=== PATIENT | male | born 1995 | race Hispanic/Latino ===

== ENCOUNTER 2022-08-19 17:59 | Emergency (ER) | payer SELFPAY ==
[2022-08-19 18:01] VITALS: BP 142/90; PULSE 87; RESP 16; TEMP 36.7; O2SAT 99
[2022-08-19 18:13] VITALS: BMI 34.0
--- NOTE | 2022-08-19 18:21 | EX.ED.DYSGE1 ---
HPI <NAGA Rock - Last Filed: 08/19/22 20:20> History of Present Illness Chief Complaint: Complaint Narrative Narrative: 27-year-old male presents with 3 days of increased thirst and increased urination. States he is peeing almost every hour. No burning or hematuria. No abdominal or back pain. No fever chills nausea or vomiting. He he denies history of similar symptoms. He has not seen a doctor and takes no medications. Denies weight changes. Family history of diabetes in his mom. PFSH <NAGA Rock - Last Filed: 08/19/22 20:20> PFSH Medical History no medical history Home Medications metformin 500 mg tablet 500 mg PO BID 30 days #60 tabs 08/19/22 [Rx Last Taken Unknown] Allergy/AdvReac Type Severity Reaction Status Date / Time No Known Allergies Allergy Verified 08/19/22 18:16 Surgical History no surgical history Social History Smoking Status: Current every day smoker tobacco type: cigarettes ROS <NAGA Rock Last Filed: 08/19/22 20:20> ROS ED ROS Narrative Constitutional: Negative for fever, chills, malaise. CVS: Negative for chest pain. Respiratory: Negative for shortness of breath. GI: Negative for abdominal pain, nausea, vomiting. : Positive for frequency. Negative for dysuria, hematuria. EXAM <NAGA Rock - Last Filed: 08/19/22 20:20> Physical Exam Narrative Exam Narrative: CONST: Patient sitting in no acute distress. EYES: Normal inspection. NECK: Normal inspection. RESP: No respiratory distress, CTAB. CVS: Regular rate and rhythm, no murmur, no gallop. ABD: Soft and nontender, no guarding or rebound, nondistended. SKIN: Color normal, no rash, warm, dry, intact. EXTREMITIES: Normal appearance, no pedal edema. NEURO: Oriented x4. PSYCH: Normal affect. Const Vital Signs: 08/19/22 18:01 08/19/22 20:16 Temperature 98.0 F Temperature Source Temporal Pulse Rate 87 80 Respiratory Rate 16 15 Blood Pressure 142/90 H 141/83 H Blood Pressure Mean 107 Pulse Ox 99 99 Oxygen Delivery Method Room Air <Dr. 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 He appears well and nontoxic and is afebrile with normal vital signs. Benign exam. Fingerstick glucose is over 500 so I ordered IV fluids and blood work will be obtained to work-up new diagnosis of diabetes and rule out DKA. CBC is within normal limits. BMP shows glucose 560, Na 132 (corrected 139), CO2 21, anion gap 13. Urine shows glucosuria and ketones but no infection. He given 2 L IV fluids and 10 units of subcutaneous insulin and glucose is trending down to 393 one hour later. Since he is not in DKA I do not think he requires admission. I prescribed metformin 500 mg twice daily and instructed him to see a family doctor IRAIS week. Return to ER for worsening symptoms. He was agreeable with this plan and all questions answered. Differential: Diabetes, DKA, UTI Lab Data Attestation: I reviewed the patient's lab results. Labs: Laboratory Results - last 24 hr 08/19/22 08/19/22 08/19/22 18:21 18:30 18:33 WBC 8.1 RBC 5.40 Hgb 16.1 Hct 46.4 MCV 85.9 MCH 29.8 MCHC 34.7 RDW Std Deviation 39.3 RDW Coeff of Angela 12.7 Plt Count 255 MPV 11.8 Immature Gran % (Auto) 0.500 Neut % (Auto) 65.0 Lymph % (Auto) 24.2 [place] % (Auto) 8.0 Eos % (Auto) 1.7 Baso % (Auto) 0.6 Absolute Neuts (auto) 5.3 Absolute Lymphs (auto) 1.97 Nucleated RBC % 0 Sodium Potassium Chloride Carbon Dioxide Anion Gap BUN Creatinine Estim Creat Clear Calc Est GFR (MDRD) Af Amer Est GFR (MDRD) Non-Af BUN/Creatinine Ratio Glucose Calcium Urine Color Straw Urine Clarity Clear Urine pH 5.0 Ur Specific [place] 1.010 Urine Protein 15 H Urine Glucose (UA) 1000 H Urine Ketones 50 H Urine Occult Blood Negative Urine Nitrite Negative Urine Bilirubin Negative Urine Urobilinogen Normal Ur Leukocyte Esterase Negative Urine RBC 0 SEEN Urine WBC 0 SEEN Ur Squamous Epith Cells 0 SEEN Urine Bacteria 0 SEEN Urine Mucus 0 SEEN Acetone Level POC Glucose > 500 H* 08/19/22 08/19/22 18:33 18:33 WBC RBC Hgb Hct MCV MCH MCHC RDW Std Deviation RDW Coeff of Angela Plt Count MPV Immature Gran % (Auto) Neut % (Auto) Lymph % (Auto) [place] % (Auto) Eos % (Auto) Baso % (Auto) Absolute Neuts (auto) Absolute Lymphs (auto) Nucleated RBC % Sodium 132 L Potassium 4.3 Chloride 98 Carbon Dioxide 21.0 Anion Gap 13 BUN 19 H Creatinine 1.11 Estim Creat Clear Calc 85.42 Est GFR (MDRD) Af Amer 101 Est GFR (MDRD) Non-Af 83 BUN/Creatinine Ratio 17.1 Glucose 560 H* Calcium 9.1 Urine Color Urine Clarity Urine pH Ur Specific [place] Urine Protein Urine Glucose (UA) Urine Ketones Urine Occult Blood Urine Nitrite Urine Bilirubin Urine Urobilinogen Ur Leukocyte Esterase Urine RBC Urine WBC Ur Squamous Epith Cells Urine Bacteria Urine Mucus Acetone Level SMALL H POC Glucose <Dr. Jabari Pyle, DO - Last Filed: 08/19/22 19:18> [facility] Lab Data Labs: Laboratory Results - last 24 hr 08/19/22 08/19/22 08/19/22 18:21 18:30 18:33 WBC 8.1 RBC 5.40 Hgb 16.1 Hct 46.4 MCV 85.9 MCH 29.8 MCHC 34.7 RDW Std Deviation 39.3 RDW Coeff of Angela 12.7 Plt Count 255 MPV 11.8 Immature Gran % (Auto) 0.500 Neut % (Auto) 65.0 Lymph % (Auto) 24.2 [place] % (Auto) 8.0 Eos % (Auto) 1.7 Baso % (Auto) 0.6 Absolute Neuts (auto) 5.3 Absolute Lymphs (auto) 1.97 Nucleated RBC % 0 Sodium Potassium Chloride Carbon Dioxide Anion Gap BUN Creatinine Estim Creat Clear Calc Est GFR (MDRD) Af Amer Est GFR (MDRD) Non-Af BUN/Creatinine Ratio Glucose Calcium Urine Color Straw Urine Clarity Clear Urine pH 5.0 Ur Specific [place] 1.010 Urine Protein 15 H Urine Glucose (UA) 1000 H Urine Ketones 50 H Urine Occult Blood Negative Urine Nitrite Negative Urine Bilirubin Negative Urine Urobilinogen Normal Ur Leukocyte Esterase Negative Urine RBC 0 SEEN Urine WBC 0 SEEN Ur Squamous Epith Cells 0 SEEN Urine Bacteria 0 SEEN Urine Mucus 0 SEEN Acetone Level POC Glucose > 500 H* 08/19/22 08/19/22 18:33 18:33 WBC RBC Hgb Hct MCV MCH MCHC RDW Std Deviation RDW Coeff of Angela Plt Count MPV Immature Gran % (Auto) Neut % (Auto) Lymph % (Auto) [place] % (Auto) Eos % (Auto) Baso % (Auto) Absolute Neuts (auto) Absolute Lymphs (auto) Nucleated RBC % Sodium 132 L Potassium 4.3 Chloride 98 Carbon Dioxide 21.0 Anion Gap 13 BUN 19 H Creatinine 1.11 Estim Creat Clear Calc 85.42 Est GFR (MDRD) Af Amer 101 Est GFR (MDRD) Non-Af 83 BUN/Creatinine Ratio 17.1 Glucose 560 H* Calcium 9.1 Urine Color Urine Clarity Urine pH Ur Specific [place] Urine Protein Urine Glucose (UA) Urine Ketones Urine Occult Blood Urine Nitrite Urine Bilirubin Urine Urobilinogen Ur Leukocyte Esterase Urine RBC Urine WBC Ur Squamous Epith Cells Urine Bacteria Urine Mucus Acetone Level SMALL H POC Glucose Treatment and Re-Evaluation :: I have personally performed a face to face assessment of the patient and have reviewed the SAHRA Note. I performed a substantive portion of the visit including all aspects of the following. My winters findings include: History: Patient presents with urinary frequency that has been getting worse over the past couple days. Patient states he is urinating at least 10 times per day. Patient denies any dysuria. Patient denies any hematuria. Patient also admits to some polydipsia. Patient denies any fevers or chills. Patient denies any nausea or vomiting. Exam: Vital signs are stable. Patient is afebrile. Patient is in no acute distress. Oral mucosa is pink and moist. Neck is supple. Trachea is midline. There is no JVD. Heart was regular rate and rhythm. Lungs are clear and equal bilaterally. Abdomen is soft. Bowel sounds are normal. There is no tenderness. Cranial nerves II through XII are intact. There are no focal motor or sensory deficits. Medical Decision Making: Differential diagnosis includes urinary tract infection, diabetes, and diabetic ketoacidosis. CBC will be obtained to assess for anemia and leukocytosis. Basic metabolic profile will be obtained to assess for electrolyte abnormality, renal function, and glucose. Serum acetone will be obtained to assess for diabetic ketoacidosis. Urinalysis will be obtained to assess for glucosuria and urinary tract infection. CBC was reviewed and was within normal limits. Basic metabolic profile was reviewed. Glucose was elevated at 560. Sodium was slightly low at 132. BUN was 19. Anion gap was normal. CO2 was normal. Urinalysis was reviewed. There is glucosuria of 1000. There is no evidence of urinary tract infection or hematuria. Serum acetone level was reviewed and was small. Patient was advised of his findings. Patient was given a dose of insulin here. Patient was given a prescription for metformin. Patient was instructed to follow-up with a primary care physician in 5 to 7 days for further evaluation. Patient understood and was agreeable with the plan. All questions were answered. Discharge Plan Triage Chief Complaint: Complaint ED Midlevel Provider: Christin Carrillo ED Provider: Jabari Pyle Dx/Rx/DC Orders Clinical Impression: Diabetes mellitus, new onset Instructions: ED Diabetes- Overview Prescriptions: New metformin 500 mg tablet 500 mg PO BID 30 Days Qty: 60 0RF Primary Care Provider: Care Physician,Danyelle Primary Referrals: Ella Kerr MD [Med Staff - Active Staff] - Mary Dhaliwal [Non-Staff] - NOT,DEFINED [Non-Staff] - Activity Restrictions/Additional Instructions: CALL FOR A DOCTOR APPOINTMENT NEXT WEEK. MAKE SURE YOU TELL THEM THE ER TOLD YOU THAT YOU HAVE DIABETES AND NEED SEEN SOON. Disposition Disposition: Home, Self Care
[2022-08-19] MEDS: 0.9% Normal Saline 1,000 ML 999 ML IV ×2 (18:32→19:22)
[2022-08-19 18:35] LABS: Bacteria 0 SEEN /hpf (None Seen); Mucous, Urine 0 SEEN /hpf (<or=2+); Red Blood Cells-Urine 0 SEEN /hpf (0-5); Squamous Epithelial Cells - UA 0 SEEN /hpf (0-5); White Blood Cells 0 SEEN /hpf (0-5)
[2022-08-19 18:39] LABS: Absolute Lymphocyte Count 1.97 X10^3/uL (0.83-4.51); Absolute Neutrophil Count 5.3 X10^3/uL (2.0-7.7); Basophil# 0.05 X10^3/uL; Basophil% 0.6 % (0-1); Eosinophil# 0.14 X10^3/uL; Eosinophils% 1.7 % (0-5); Hematocrit 46.4 % (40-54); Hemoglobin 16.1 g/dL (13.0-16.5); Lymphocyte # 1.97 X10^3/ul (0.83-4.51); Lymphocyte % 24.2 % (19-41); Mean Corp Hgb Conc 34.7 g/dL (32-36); Mean Corpuscular Hgb 29.8 pg (27.0-32.0); Mean Corpuscular Volume 85.9 fL (80-94); Mean Platelet Vol. 11.8 fl (6.2-12.0); Monocyte# 0.65 X10^3/uL; NRBC Flagged by Analyzer 0 % (0-5); Neutrophil # 5.28 X10^3/uL (2.7-7.7); Platelet Count 255 K/mm3 (150-450); RBC Distribution Width CV 12.7 % (11.6-14.6); RBC Distribution Width SD 39.3 fl (35.1-43.9); White Blood Count 8.1 K/mm3 (4.4-11.0)
[2022-08-19 18:40] LABS: Color, Urine Straw (Yellow); Glucose, Dipstick 1000 mg/dl (Normal); Ketone-Dipstick 50 mg/dl (Negative); Leukocyte Esterase-Dipstick Negative /ul (Negative); Nitrite-Dipstick Negative (Negative); Occult Blood-Urine Negative /ul (Negative); Protein-Dipstick 15 mg/dl (Negative); Urine Bilirubin Dipstick Negative (Negative); Urine Clarity Clear (Clear); Urine Urobilinogen Normal (Normal)
[2022-08-19 18:40] LABS: Bedside Glucose > 500 mg/dL (74-106)
[2022-08-19 19:03] LABS: Anion Gap 13 (5-15); BUN 19 mg/dL (7-18); BUN/Creat Ratio 17.1 RATIO (10-20); Calcium,Total 9.1 mg/dL (8.5-10.1); Chloride 98 mmol/L (98-107); Creatinine, Serum 1.11 mg/dL (0.70-1.30); EST Glomerular Filtration Rate 83 mL/min (>60); Est Glom Filt Rate - Afr Amer 101 mL/min (>60); Estimated Creatinine Clearance 85.42 ml/min; Glucose 560 mg/dL (74-106); Potassium 4.3 mmol/L (3.5-5.1); Sodium Level 132 mmol/L (136-145)
[2022-08-19] MEDS: Insulin Lispro 100 UNIT/ML INSULN.PEN 10 UNIT SC (19:21)
[2022-08-19 20:16] VITALS: BP 141/83; PULSE 80; RESP 15; O2SAT 99
[2022-08-19 20:37] LABS: Bedside Glucose 393 mg/dL (74-106)
== END 2022-08-19 20:52 | disposition home or self-care (01) ==
PROVIDERS: Physician Assistant; Emergency Provider Emergency Medicine; Visit Provider Emergency Medicine
DX: E11.9 Type 2 diabetes mellitus without complications (principal); F17.210 Nicotine dependence, cigarettes, uncomplicated; R35.89 Other polyuria; R35.0 Frequency of micturition; Z79.84 Long term (current) use of oral hypoglycemic drugs
CPT/HCPCS: 80048; 81001; 82009; 82962; 85025; 96360; 96361; 99283; J7030

== ENCOUNTER 2022-10-06 18:00 | Inpatient (IN) | payer SELFPAY ==
[2022-10-06] VITALS (8 sets, daily range): BP systolic 122–158; BP diastolic 71–104; PULSE 80–102; RESP 16–26; TEMP 36.3–36.6; O2SAT 99–100; BMI 29.4; BMI 28.7
--- NOTE | 2022-10-06 18:09 | ED.RN ---
NUMB LIPS, EPIGASTRIC PAIN, WEAKNESS FATIGUE. EKG ORDERED IN TRAIGE.
--- NOTE | 2022-10-06 18:25 | NURSING ---
NO OLD EKGS
--- NOTE | 2022-10-06 18:34 | EX.ED.DYSGE1 ---
HPI History of Present Illness Chief Complaint: General Illness Narrative Narrative: 27-year-old male presenting with epigastric pain, nausea, vomiting. He states it is burning. It started yesterday. He states he had eggs and Indonesian fries yesterday before the pain started. It started about 4 PM. Patient states he noticed that he started to have acid reflux symptoms. He has not had this in the past. Patient recently diagnosed with diabetes but has not been taking any medication for this because he does not have a primary care doctor. He is [place]-speaking. 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 He has been out of his metformin now for a while. He was diagnosed in July with new onset diabetes. He states that he does feel short of breath. PFSH PFSH Medical History no medical history Home Medications metformin 500 mg tablet 500 mg PO BID 30 days #60 tabs 08/19/22 [Rx Last Taken Unknown] Allergy/AdvReac Type Severity Reaction Status Date / Time No Known Allergies Allergy Verified 08/19/22 18:16 Surgical History no surgical history Social History Smoking Status: Current every day smoker tobacco type: cigarettes EXAM Physical Exam Const Vital Signs: 10/06/22 18:01 10/06/22 18:51 10/06/22 19:29 Temperature 97.8 F Temperature Source Temporal Pulse Rate 102 H 84 Respiratory Rate 16 20 H Respiratory Effort Normal Non-Labored Respiratory Pattern Normal Blood Pressure 158/104 H 141/84 H Blood Pressure Mean 122 103 Pulse Ox 100 100 Oxygen Delivery Method Room Air Room Air 10/06/22 20:42 10/06/22 21:36 10/06/22 21:55 Temperature Temperature Source Pulse Rate 80 90 Respiratory Rate 18 16 Respiratory Effort Respiratory Pattern Blood Pressure 122/72 H Blood Pressure Mean 88 Pulse Ox 99 100 Oxygen Delivery Method Room Air Room Air Positive well nourished General Appearance ED: NAD; Negative for pallor HEENT Reports moist mucous membranes Eyes PERRL and EOMs intact bilaterally General Eye ED: Negative for pale conjunctiva or scleral icterus Resp normal respiratory effort and clear to auscultation bilaterally Cardio regular rate and regular rhythm GI Palpation: tender epigastric Neuro oriented x3 Sensorium / Orientation: alert Motor Exam: strength 5/5 throughout Psych mental status grossly normal Skin no rashes or lesions noted General Skin Exam: Negative for jaundice or pallor MDM MDM MDM Narrative Medical decision making narrative: Patient presenting with epigastric pain/chest pain been ongoing for a day. He has a history of diabetes which is not well controlled because he does not take his medicine. Differential includes hyperglycemia, DKA, HHNK, ACS, pneumonia, pancreatitis, colitis, gastritis, cholelithiasis. CBC was obtained to assess white blood cell count, hemoglobin. This was within normal limits. CMP to assess liver function, renal function, electrolytes. This shows a elevated alkaline phosphatase and ALT otherwise his LFTs are fairly normal. Blood sugar is 325 with anion gap of 19. He does have large acetone in his blood as well. Patient has an NED as well with a creatinine 1.41. Patient treated with 2 L of normal saline. He was initially given a GI cocktail and Zofran. He continued to have pain so he was given morphine as well. Patient CO2 was 7. High-sensitivity troponin came back at 5. Lipase 536 and slightly elevated. I did obtain a right upper quadrant ultrasound which showed gallbladder sludge without acute cholelithiasis. Chest x-ray my interpretation shows no acute cardiopulmonary process. Radiologist interprets this and agrees. Went back to evaluate the patient initially stated he had 3 beers a day. After speaking with the hospitalist it sounds like he binge drinks all weekend. This may be why his lipase is high. After discussing this with the hospitalist recommends an insulin drip and D5 normal saline. Patient will be admitted to the ICU. Urinalysis returned with ketones but no evidence of infection. All questions were answered. Patient admitted in stable condition. Impression: 1. Chest pain 2. Epigastric pain 3. Elevated lipase 4. DKA 5. Alcohol abuse 6. Noncompliant Lab Data Labs: Laboratory Results - last 24 hr 10/06/22 10/06/22 10/06/22 18:05 18:47 19:20 WBC 9.5 RBC 5.65 Hgb 16.4 Hct 49.5 MCV 87.6 MCH 29.0 MCHC 33.1 RDW Std Deviation 43.0 RDW Coeff of Angela 13.4 Plt Count 233 MPV 11.2 Immature Gran % (Auto) 0.400 Neut % (Auto) 80.3 H Lymph % (Auto) 12.4 L [place] % (Auto) 6.1 Eos % (Auto) 0.4 Baso % (Auto) 0.4 Absolute Neuts (auto) 7.6 Absolute Lymphs (auto) 1.18 Nucleated RBC % 0 Sodium 136 Potassium 3.8 Chloride 110 H Carbon Dioxide 7.0 L* Anion Gap 19 H BUN 12 Creatinine 1.41 H Estim Creat Clear Calc 67.24 Est GFR (MDRD) Af Amer 76 Est GFR (MDRD) Non-Af 63 BUN/Creatinine Ratio 8.5 L Glucose 325 H Calcium 8.4 L Total Bilirubin 0.50 AST 30 ALT 95 H Alkaline Phosphatase 143 H Troponin I High Sens 5 Total Protein 8.2 Albumin 3.8 Globulin 4.4 H Albumin/Globulin Ratio 0.9 Lipase 536 H Urine Color Yellow Urine Clarity Clear Urine pH 5.0 Ur Specific [place] 1.030 Urine Protein 100 H Urine Glucose (UA) 1000 H Urine Ketones 150 A* Urine Occult Blood 25 H Urine Nitrite Negative Urine Bilirubin Negative Urine Urobilinogen Normal Ur Leukocyte Esterase Negative Urine RBC 0 SEEN Urine WBC 0 SEEN Ur Squamous Epith Cells 0 SEEN Urine Bacteria 0 SEEN Hyaline Casts 0-5 SEEN Urine Mucus 0 SEEN Acetone Level POC Glucose 326 H 10/06/22 20:10 WBC RBC Hgb Hct MCV MCH MCHC RDW Std Deviation RDW Coeff of Angela Plt Count MPV Immature Gran % (Auto) Neut % (Auto) Lymph % (Auto) [place] % (Auto) Eos % (Auto) Baso % (Auto) Absolute Neuts (auto) Absolute Lymphs (auto) Nucleated RBC % Sodium Potassium Chloride Carbon Dioxide Anion Gap BUN Creatinine Estim Creat Clear Calc Est GFR (MDRD) Af Amer Est GFR (MDRD) Non-Af BUN/Creatinine Ratio Glucose Calcium Total Bilirubin AST ALT Alkaline Phosphatase Troponin I High Sens Total Protein Albumin Globulin Albumin/Globulin Ratio Lipase Urine Color Urine Clarity Urine pH Ur Specific [place] Urine Protein Urine Glucose (UA) Urine Ketones Urine Occult Blood Urine Nitrite Urine Bilirubin Urine Urobilinogen Ur Leukocyte Esterase Urine RBC Urine WBC Ur Squamous Epith Cells Urine Bacteria Hyaline Casts Urine Mucus Acetone Level LARGE H POC Glucose Radiography Diagnostic Testing: Clinical Impression(s) from Imaging Studies Chest X-Ray 10/06/22 19:05 IMPRESSION: No radiographic evidence of acute cardiopulmonary disease. Electronically Signed: Etsrellita Cheung MD at 20:07 EDT [place] Location ID and State: [id number] / Tel , Service support , Gallbladder Ultrasound 10/06/22 20:27 IMPRESSION: 1. Gallbladder sludge. 2. Suspected gallbladder polyp. 3. Hypoechoic lesion adjacent to the gallbladder, probable fatty sparing. 4. Mild hepatic steatosis. Electronically Signed: Estrellita Cheung MD at 22:03 EDT [place] Location ID and State: [id number] / Tel , Service support , Discharge Plan Triage Chief Complaint: General Illness ED Provider: Daniel Herrera Dx/Rx/DC Orders Prescriptions: No Action metformin 500 mg tablet 500 mg PO BID 30 Days Qty: 60 0RF Primary Care Provider: Care Physician,No Primary Referrals: Care Physician,No Primary [Primary Care Provider] -
[2022-10-06 18:58] LABS: Absolute Lymphocyte Count 1.18 X10^3/uL (0.83-4.51); Absolute Neutrophil Count 7.6 X10^3/uL (2.0-7.7); Basophil# 0.04 X10^3/uL; Basophil% 0.4 % (0-1); Eosinophil# 0.04 X10^3/uL; Eosinophils% 0.4 % (0-5); Hematocrit 49.5 % (40-54); Hemoglobin 16.4 g/dL (13.0-16.5); Lymphocyte # 1.18 X10^3/ul (0.83-4.51); Lymphocyte % 12.4 % (19-41); Mean Corp Hgb Conc 33.1 g/dL (32-36); Mean Corpuscular Volume 87.6 fL (80-94); Mean Platelet Vol. 11.2 fl (6.2-12.0); Monocyte# 0.58 X10^3/uL; Monocyte% 6.1 % (0-10); NRBC Flagged by Analyzer 0 % (0-5); Neutrophil # 7.62 X10^3/uL (2.7-7.7); Neutrophil % 80.3 % (47-70); Platelet Count 233 K/mm3 (150-450); RBC Distribution Width CV 13.4 % (11.6-14.6); Red Blood Count 5.65 M/mm3 (4.6-6.2); White Blood Count 9.5 K/mm3 (4.4-11.0)
[2022-10-06 19:01] LABS: Bedside Glucose 326 mg/dL (74-106)
[2022-10-06] MEDS: 0.9% Normal Saline 1,000 ML 1000 ML IV ×2 (19:05→20:41)
[2022-10-06] MEDS: Mag Hydrox/Al Hydrox/Simeth 30 ML UDC PO (19:05)
--- NOTE | 2022-10-06 19:05 | RAD_ITS ---
INDICATION: chest pain EXAMINATION/TECHNIQUE: X-RAY - XR Chest 1 View COMPARISON: FINDINGS: LINES/DEVICES: None. LUNGS: No consolidation, edema or effusion. No pneumothorax. MEDIASTINUM AND CARDIOVASCULAR STRUCTURES: Cardiac silhouette not enlarged. Central airways and mediastinal contour are unremarkable. BONES AND SOFT TISSUES: Unremarkable. RAD/Chest 1 View (Portable) IMPRESSION: No radiographic evidence of acute cardiopulmonary disease. Electronically Signed: Estrellita Cheung MD at 20:07 EDT Reading Location ID and State: [id number] / Tel , Service support ,
[2022-10-06] MEDS: Ondansetron 4 MG/2 ML Vial IV (19:14)
[2022-10-06 19:27] LABS: Bacteria 0 SEEN /hpf (None Seen); Mucous, Urine 0 SEEN /hpf (<or=2+); Red Blood Cells-Urine 0 SEEN /hpf (0-5); Squamous Epithelial Cells - UA 0 SEEN /hpf (0-5); White Blood Cells 0 SEEN /hpf (0-5)
[2022-10-06 19:31] LABS: Color, Urine Yellow (Yellow); Glucose, Dipstick 1000 mg/dl (Normal); Leukocyte Esterase-Dipstick Negative /ul (Negative); Nitrite-Dipstick Negative (Negative); Occult Blood-Urine 25 /ul (Negative); Protein-Dipstick 100 mg/dl (Negative); Urine Bilirubin Dipstick Negative (Negative); Urine Clarity Clear (Clear); Urine Urobilinogen Normal (Normal)
[2022-10-06 19:35] LABS: ALB/GLOB Ratio 0.9 RATIO (0.9-2.4); AST(SGOT) 30 U/L (15-37); Alanine Aminotransfer ALT/SGPT 95 U/L (16-61); Albumin, Serum 3.8 g/dL (3.2-5.0); Alkaline Phosphatase 143 U/L (45-117); Anion Gap 19 (5-15); BUN 12 mg/dL (7-18); BUN/Creat Ratio 8.5 RATIO (10-20); Calcium,Total 8.4 mg/dL (8.5-10.1); Chloride 110 mmol/L (98-107); Creatinine, Serum 1.41 mg/dL (0.70-1.30); EST Glomerular Filtration Rate 63 mL/min (>60); Est Glom Filt Rate - Afr Amer 76 mL/min (>60); Estimated Creatinine Clearance 67.24 ml/min; Globulin 4.4 g/dL (2.2-4.2); Glucose 325 mg/dL (74-106); Lipase 536 U/L (13-75); Potassium 3.8 mmol/L (3.5-5.1); Protein, Total 8.2 g/dL (6.4-8.2); Sodium Level 136 mmol/L (136-145); Troponin-I HS 5 pg/mL (3.0-78.0)
[2022-10-06 19:41] LABS: Ketone-Dipstick 150 mg/dl (Negative)
[2022-10-06 19:46] LABS: Hyaline Cast 0-5 SEEN /lpf (0-5)
--- NOTE | 2022-10-06 20:27 | US_ITS ---
EXAM: US ABDOMEN LIMITED, RIGHT UPPER QUADRANT CLINICAL INDICATION: ruq pain TECHNIQUE: Real-time ultrasound of the right upper quadrant with image documentation. COMPARISON: No relevant prior studies available. FINDINGS: LIVER: 2.3 x 1.7 cm hypoechoic lesion in the liver adjacent to the gallbladder, nonspecific. This may represent focal fatty sparing. Liver is normal in size measuring 17.3 cm. Mild increased echogenicity consistent with fatty infiltration. GALLBLADDER: Sludge in the gallbladder. 0.5 x 0.4 cm polyp on the nondependent wall. No pericholecystic fluid. Mold Holder does not comment on the presence or absence of sonographic Foley sign. COMMON BILE DUCT: Unremarkable as visualized. The proximal common bile duct is within normal limits for the patient''s age. PANCREAS: Limited visualization of the pancreas. Demonstrated portion of the pancreatic body is unremarkable. RIGHT KIDNEY: Right kidney is normal in size and echogenicity measuring 12 x 5.9 cm. Renal cortical thickness is normal. No mass, stone, or hydronephrosis. US/Gallbladder IMPRESSION: 1. Gallbladder sludge. 2. Suspected gallbladder polyp. 3. Hypoechoic lesion adjacent to the gallbladder, probable fatty sparing. 4. Mild hepatic steatosis. Electronically Signed: Estrellita Cheung MD at 22:03 EDT [place] Location ID and State: [id number] / Tel , Service support ,
[2022-10-06] MEDS: Morphine 4 MG/ML Syringe IV (20:41)
--- NOTE | 2022-10-06 22:20 | HP.PCM.HOS_ITS ---
HPI - General General Date of Admission: 10/06/22 Date of Service: 10/06/22 Chief Complaint: N/V/Abd pain. HPI Narrative The patient is a 27 y/o Kazakh-speaking M w/ PMHx: Overweight, GERD, Diabetes mellitus type II on metformin outpatient, EtOH abuse x ~ 16 years (Binge with at least 15 beers/day over the -Sun timeline) who presents to the [facility] ED on 10/06/22 with history of onset at approximately 4 PM on day of presentation severe epigastric discomfort rated 6-7 out of 10 in severity with associated nausea and emesis describing the discomfort as a burning aching sensation with a history of underlying reflux type symptoms but has never had this presentation previously does report that unfortunately he has not been taking any of his diabetic medications as he has not had it refilled because he has not established with a primary care physician but given ongoing discomfort, malaise, fatigue and now onset of mild dyspnea prompted ED evaluation. He does reports polydipsia and polyuria history. Work-up in the ED included T97.8, heart rate 102, BP 158/104, respiratory rate 16, 100% oxygenation on room air, CBC with WBC 9.5, hemoglobin 16.4, platelet 223 without marked shift, CMP with chloride 110, carbon oxide 7, anion gap 19, BUN/creatinine 12/1.41, glucose 325, calcium 8.4, ALT 95, alk phos 143, lipase 536, urinalysis with elevated specific gravity 1.030, protein 100, glucose 1000, ketones 150, occult blood 25 otherwise no obvious evidence of UTI, acetone large, chest x-ray with no acute cardiopulmonary findings, gallbladder ultrasound with evidence of gallbladder sludge and suspected gallbladder polyp with hypoechoic lesion adjacent to the gallbladder probably fatty sparring with mild hepatic steatosis. In the ED patient administered Protonix 40 mg IV x1, Zofran 4 mg IV x1, morphine 4 mg IV x1, Mylanta 30 mils p.o. x1 in addition to viscous oral lidocaine and initiated on an insulin drip with 2 L IV fluid administration. [facility] Medical History (Updated 10/07/22 @ 01:[address] Danielle De Luna MD) Alcohol abuse Diabetes mellitus, type 2 GERD (gastroesophageal reflux disease) Overweight Medical History no medical history Home Medications metformin 500 mg tablet 500 mg PO BID 30 days #60 tabs 08/19/22 [Rx Last Taken Unknown] Allergy/AdvReac Type Severity Reaction Status Date / Time No Known Allergies Allergy Verified 08/19/22 18:16 Family History (Updated 10/07/22 @ 01:[address] Danielle De Luna MD) Mother Diabetes Father No problems noted. other (Patient denies any marked paternal family history including heart disease, diabetes, cancer.) Surgical History (Updated 10/07/22 @ 01:[address] Danielle De Luna MD) No history of previous surgery Surgical History no surgical history Social History (Updated 10/07/22 @ 01:[address] Danielle De Luna MD) household members: spouse and family Smoking Status: Never smoker alcohol intake: current alcohol intake frequency: 3 or more drinks per day details: Patient with binge drinking ~ 15 beers/daily F-Sun. substance use type: does not use ROS ROS Narrative Admission Review of Systems: CONSTITUTIONAL: No weight loss, fever, chills, + weakness or fatigue. HEENT: Eyes: No visual loss, blurred vision, double vision or yellow sclerae. Ears, Nose, Throat: No hearing loss, sneezing, congestion, runny nose or sore throat. SKIN: No rash or itching, lesions, wounds. CARDIOVASCULAR: No chest pain, chest pressure or chest discomfort, palpitations, edema, orthopnea, syncopal events. RESPIRATORY: + shortness of breath, No cough or sputum, wheezing, hemoptysis. GASTROINTESTINAL: + anorexia, nausea, vomiting, abdominal pain. No diarrhea, melena, BRBPR. GENITOURINARY: No dysuria, frequency, urgency or retention. NEUROLOGICAL: No headache, dizziness, syncope, paralysis, ataxia, numbness or tingling in the extremities, focal weakness, change in bowel or bladder control, seizure. MUSCULOSKELETAL: + muscle, back pain, joint pain or stiffness. HEMATOLOGIC: No anemia, bleeding or bruising. LYMPHATICS: No enlarged nodes. No history of splenectomy. PSYCHIATRIC: No history of depression or anxiety. ENDOCRINOLOGIC: No reports of sweating, cold or heat intolerance. + polyuria or polydipsia. ALLERGIES: No history of asthma, hives, eczema or rhinitis. Vital Signs Vital Signs Vital Signs: 10/06/22 18:01 10/06/22 18:51 10/06/22 19:29 Temperature 97.8 F Temperature Source Temporal Pulse Rate 102 H 84 Respiratory Rate 16 20 H Respiratory Effort Normal Non-Labored Respiratory Pattern Normal Blood Pressure 158/104 H 141/84 H Blood Pressure Mean 122 103 Pulse Ox 100 100 Oxygen Delivery Method Room Air Room Air 10/06/22 20:42 10/06/22 21:36 10/06/22 21:55 Temperature Temperature Source Pulse Rate 80 90 Respiratory Rate 18 16 Respiratory Effort Respiratory Pattern Blood Pressure 122/72 H Blood Pressure Mean 88 Pulse Ox 99 100 Oxygen Delivery Method Room Air Room Air Weight Weight: 177 lb Body Mass Index (BMI) 29.4 Physical Exam Narrative Physical Examination: General: Awake, alert, oriented x 3 and cooperative, laying in the ED bed, fati gued and ill-appearing, notes ongoing epigastric discomfort. Skin: Normal color, normal turgor, no icterus, no cyanosis. HEENT: AT/NC, EOMI, PERRLA, dry MM, no carotid bruits or JVD noted. Lungs: CTA bilaterally, moderate effort, mild decrease BL bases, no rales, ronchi or wheezing. Heart: Currently regular rate and rhythm; no gallop, rub audible. Abdomen: Soft, overweight, mild epigastric discomfort with palpation but no specific rebound or guarding, no marked distention, hyperactive BS, no marked HSM noted. Extremities: No cyanosis, clubbing, or edema. Neurological: Patient awake, alert, oriented as noted, cognitive function intact; pupils equally reactive to light and accommodation, cranial nerves grossly normal, moving all 4 extremities, no focal deficits, strength moderately global decrease secondary to acute presentation. Psychiatric: Affect appears fatigued, uncomfortable appearing, ill-appearing, no acute evidence of depressive or anxiety feelings. Results Lab / Micro Data 10/06/22 18:47 10/06/22 23:30 Labs: Laboratory Results - last 24 hr 10/06/22 18:05: POC Glucose 326 H 10/06/22 18:47: WBC 9.5, RBC 5.65, Hgb 16.4, Hct 49.5, MCV 87.6, MCH 29.0, MCHC 33.1, RDW Std Deviation 43.0, RDW Coeff of Angela 13.4, Plt Count 233, MPV 11.2, Immature Gran % (Auto) 0.400, Neut % (Auto) 80.3 H, Lymph % (Auto) 12.4 L, [place] % (Auto) 6.1, Eos % (Auto) 0.4, Baso % (Auto) 0.4, Absolute Neuts (auto) 7.6, Absolute Lymphs (auto) 1.18, Nucleated RBC % 0, Sodium 136, Potassium 3.8, Chloride 110 H, Carbon Dioxide 7.0 L*, Anion Gap 19 H, BUN 12, Creatinine 1.41 H , Estim Creat Clear Calc 67.24, Est GFR (MDRD) Af Amer 76, Est GFR (MDRD) Non-Af 63, BUN/Creatinine Ratio 8.5 L, Glucose 325 H, Calcium 8.4 L, Total Bilirubin 0.50, AST 30, ALT 95 H, Alkaline Phosphatase 143 H, Troponin I High Sens 5, Total Protein 8.2, Albumin 3.8, Globulin 4.4 H, Albumin/Globulin Ratio 0.9, Lipase 536 H 10/06/22 19:20: Urine Color Yellow, Urine Clarity Clear, Urine pH 5.0, Ur Specific [place] 1.030, Urine Protein 100 H, Urine Glucose (UA) 1000 H, Urine Ketones 150 A*, Urine Occult Blood 25 H, Urine Nitrite Negative, Urine Bilirubin Negative, Urine Urobilinogen Normal, Ur Leukocyte Esterase Negative, Urine RBC 0 SEEN, Urine WBC 0 SEEN, Ur Squamous Epith Cells 0 SEEN, Urine Bacteria 0 SEEN, Hyaline Casts 0-5 SEEN, Urine Mucus 0 SEEN 10/06/22 20:10: Acetone Level LARGE H Radiology Impression Chest X-Ray 10/06/22 19:05 IMPRESSION: No radiographic evidence of acute cardiopulmonary disease. Electronically Signed: Estrellita Cheung MD at 20:07 EDT Reading Location ID and State: Tali Walton MD Tel , Service support , Gallbladder Ultrasound 10/06/22 20:27 IMPRESSION: 1. Gallbladder sludge. 2. Suspected gallbladder polyp. 3. Hypoechoic lesion adjacent to the gallbladder, probable fatty sparing. 4. Mild hepatic steatosis. Electronically Signed: Estrellita Cheung MD at 22:03 EDT Reading Location ID and State: Tali Walton MD Tel , Service support , Assessment & Plan Assessment/Plan (1) DKA (diabetic ketoacidoses): (2) Acute alcoholic pancreatitis: PLAN: Plan The patient is a 27 y/o Kazakh-speaking M w/ PMHx: Overweight, GERD, Diabetes mellitus type II on metformin outpatient, EtOH abuse x ~ 16 years who presents to the [facility] ED on 10/06/22 with history of onset at approximately 4 PM on day of presentation severe epigastric discomfort rated 6-7 out of 10 in severity with associated nausea and emesis describing the discomfort as a burning aching sensation with a history of underlying reflux type symptoms but has never had this presentation previously does report that unfortunately he has not been taking any of his diabetic medications as he has not had it refilled because he has not established with a primary care physician but given ongoing discomfort, malaise, fatigue and now onset of mild dyspnea prompted ED evaluation. #1. DKA w/ Diabetes mellitus type II: Patient initiated on insulin drip in the ED. Will admit to the ICU, will request ABG, will administer bicarb amp,. will continue on insulin drip, check serial K+, glucose w/ IVF changes pending these levels, serial chemistry, obtain mag, phos daily w/ repletion as needed, transition to home SC regimen when gap closed w/ overlap on drip, nutrition consultation. Encouraged diet and insulin regimen compliance. Hemoglobin A1c requested. Given history of difficulty with medications and no primary care discussed with patient and his spouse the importance of consideration of following up with [facility] pain clinic Meg De Leon for more close aggressive care. #2. Alcoholic Acute pancreatitis w/ abdominal pain, N/V with concurrently noted mild transaminitis as well as elevated alk phos: Will maintain on IVFs, NPO, PPI, IV/po pain control, trend lipase, CMP, right upper quadrant ultrasound with gallbladder sludge and possibly a polyp as well as a hypoechoic lesion adjacent to the gallbladder noted to probably be fatty sparing with mild hepatic steatosis, will obtain FLP to be cautious however discussed alcohol abuse at length with patient and strongly encourage sobriety as this is likely the etiology for this presentation. Will maintain on CIWA protocol, MVI, thiamine and folic acid. Case management consulted for substance abuse assistance. #3. Acute renal insufficiency secondary to intractable nausea and emesis: Admission BUN/creatinine 02/23.41, baseline creatinine prior 1.1 08/19/2022 with at the labs consistent with CKD stage II already likely secondary to poorly controlled disease treatment as noted, will continue aggressive hydration repeat CMP in AM. #4. Overweight: Weight loss and lifestyle changes encouraged. #5. GERD: We will maintain on PPI. #6. DVT prophylaxis: Lovenox. #7. CODE status: Full Code. 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 Charges/Coding Visit Charges Inpatient E&M: 12569 Init Hosp L3
[2022-10-06 23:35] LABS: Bedside Glucose 272 mg/dL (74-106)
[2022-10-07] VITALS (18 sets, daily range): BP systolic 109–136; BP diastolic 61–85; PULSE 64–87; RESP 16–27; TEMP 36.3–36.7; O2SAT 99–100; BMI 29.2
[2022-10-07] MEDS: 0.9% Normal Saline 1,000 ML 999 ML IV
[2022-10-07 00:12] LABS: Magnesium 2.2 mg/dL (1.6-2.6); Phosphorus 1.5 mg/dL (2.5-4.9)
[2022-10-07 00:20] LABS: Anion Gap 17 (5-15); BUN 11 mg/dL (7-18); BUN/Creat Ratio 11.7 RATIO (10-20); Calcium,Total 7.7 mg/dL (8.5-10.1); Chloride 116 mmol/L (98-107); Creatinine, Serum 0.94 mg/dL (0.70-1.30); EST Glomerular Filtration Rate 101 mL/min (>60); Est Glom Filt Rate - Afr Amer 122 mL/min (>60); Estimated Creatinine Clearance 104.64 ml/min; Glucose 257 mg/dL (74-106); Potassium 3.4 mmol/L (3.5-5.1); Sodium Level 140 mmol/L (136-145)
[2022-10-07] MEDS: KCL 20MEQ in D5.45NS 20 MEQ/1,000 ML IV.SOLN. 150 MEQ IV ×2 (01:10→07:00)
[2022-10-07] MEDS: Potassium Chloride 10mEq/100mL 10 MEQ/100 ML IV.SOLN. 100 MEQ IV BOLUS ×4 (01:11→04:31)
[2022-10-07 01:32] LABS: Bedside Glucose 224 mg/dL (74-106)
[2022-10-07 01:32] LABS: Bedside Glucose 261 mg/dL (74-106)
[2022-10-07 01:32] LABS: Bedside Glucose 205 mg/dL (74-106)
[2022-10-07] MEDS: Sodium Bicarbonate 8.4% 50 ML Syringe 50 MEQ IV ×2 (02:49→03:02)
--- NOTE | 2022-10-07 02:53 | CPS ---
CRITICAL ABG VALUES, DR. WALLACE AWARE.
[2022-10-07 02:56] LABS: Allen Test POS; Blood Gas Specimen Type ART; SITE R RADIAL
[2022-10-07 02:57] LABS: O2 Delivery Device Room Air; PO2 110 mmHG (75-100); pCO2 20.4 mmHg (35-45); pH 7.15 (7.35-7.45)
[2022-10-07 02:58] LABS: Base Excess -22 mmol/L (-2 to +2); SO2 97 % (95-99); Total Carbon Dioxide 8 mmol/L
[2022-10-07 03:37] LABS: Absolute Lymphocyte Count 1.35 X10^3/uL (0.83-4.51); Absolute Neutrophil Count 8.3 X10^3/uL (2.0-7.7); Basophil# 0.03 X10^3/uL; Basophil% 0.3 % (0-1); Eosinophil# 0.05 X10^3/uL; Eosinophils% 0.5 % (0-5); Hematocrit 43.2 % (40-54); Hemoglobin 14.4 g/dL (13.0-16.5); Lymphocyte # 1.35 X10^3/ul (0.83-4.51); Lymphocyte % 12.8 % (19-41); Mean Corp Hgb Conc 33.3 g/dL (32-36); Mean Corpuscular Hgb 29.6 pg (27.0-32.0); Mean Corpuscular Volume 88.7 fL (80-94); Mean Platelet Vol. 11.3 fl (6.2-12.0); Monocyte% 7.6 % (0-10); NRBC Flagged by Analyzer 0 % (0-5); Neutrophil # 8.25 X10^3/uL (2.7-7.7); Neutrophil % 78.3 % (47-70); Platelet Count 192 K/mm3 (150-450); RBC Distribution Width CV 13.6 % (11.6-14.6); RBC Distribution Width SD 44.1 fl (35.1-43.9); Red Blood Count 4.87 M/mm3 (4.6-6.2); White Blood Count 10.5 K/mm3 (4.4-11.0)
[2022-10-07 04:00] LABS: ALB/GLOB Ratio 0.9 RATIO (0.9-2.4); AST(SGOT) 26 U/L (15-37); Alanine Aminotransfer ALT/SGPT 70 U/L (16-61); Albumin, Serum 2.9 g/dL (3.2-5.0); Alkaline Phosphatase 108 U/L (45-117); Anion Gap 10 (5-15); BUN 11 mg/dL (7-18); BUN/Creat Ratio 12.2 RATIO (10-20); Calcium,Total 7.3 mg/dL (8.5-10.1); Chloride 121 mmol/L (98-107); Cholesterol 165 mg/dL (200); EST Glomerular Filtration Rate 106 mL/min (>60); Est Glom Filt Rate - Afr Amer 128 mL/min (>60); Estimated Creatinine Clearance 109.29 ml/min; Globulin 3.4 g/dL (2.2-4.2); Glucose 177 mg/dL (74-106); High Density Lipoprotein 27 mg/dL; Potassium 3.5 mmol/L (3.5-5.1); Protein, Total 6.3 g/dL (6.4-8.2); Sodium Level 144 mmol/L (136-145); Triglycerides 237 mg/dL; Very Low Density Lipoprotein 47 mg/dL (5-40)
[2022-10-07 04:30] LABS: Bedside Glucose 186 mg/dL (74-106)
[2022-10-07 04:30] LABS: Bedside Glucose 181 mg/dL (74-106)
[2022-10-07 04:30] LABS: Bedside Glucose 179 mg/dL (74-106)
[2022-10-07 05:01] LABS: Amphetamine Urine VISTA NEGATIVE (<1000 ng/mL); Barbiturate Urine VISTA NEGATIVE (< 200 ng/mL); Benzodiazepine Urine VISTA NEGATIVE (< 200 ng/mL); Cocaine Urine VISTA NEGATIVE (< 300 ng/mL); Ecstacy Urine VISTA NEGATIVE (< 500 ng/mL); Methadone Urine VISTA NEGATIVE (< 300 ng/mL); PCP Urine VISTA NEGATIVE (< 25 ng/mL); THC Urine VISTA NEGATIVE (< 50 ng/mL); Vista UDS pH Range 5
[2022-10-07 05:40] LABS: Lipase > 5000 U/L (13-75)
--- NOTE | 2022-10-07 07:31 | PCM.PN.HOSP ---
Reason for Visit Reason for Visit: Diagnoses Type 2 diabetes mellitus with ketoacidosis without coma (10/06/22) Alcohol induced acute pancreatitis without necrosis or infection (10/06/22) Subjective Subjective Follow-up DKA with acute pancreatitis and diarrhea Objective Data Objective Data Vital Signs: Vital Signs Temp Pulse Resp BP Pulse Ox O2 Del Method 97.3 F L 64 17 126/76 H 99 Room Air 10/07/22 00:00 10/07/22 07:00 10/07/22 07:00 10/07/22 07:00 10/07/22 07:00 10/07/22 07:00 Oxygen Delivery Method Room Air Weight: 181 lb 10.574 oz Body Mass Index (BMI) 29.2 Intake & Output: Intake and Output for Last 24 Hours 10/05/22 10/06/22 10/07/22 23:59 23:59 23:59 Intake Total 2110 / 2117.2 2428.33 / 2428.33 Output Total 600 / 600 Balance 2110 / 2117.2 1828.33 / 1828.33 Lab / Micro Data 10/07/22 03:26 10/07/22 03:26 Labs: Laboratory Results - last 24 hr 10/06/22 18:05: POC Glucose 326 H 10/06/22 18:47: WBC 9.5, RBC 5.65, Hgb 16.4, Hct 49.5, MCV 87.6, MCH 29.0, MCHC 33.1, RDW Std Deviation 43.0, RDW Coeff of Angela 13.4, Plt Count 233, MPV 11.2, Immature Gran % (Auto) 0.400, Neut % (Auto) 80.3 H, Lymph % (Auto) 12.4 L, [place] % (Auto) 6.1, Eos % (Auto) 0.4, Baso % (Auto) 0.4, Absolute Neuts (auto) 7.6, Absolute Lymphs (auto) 1.18, Nucleated RBC % 0, Sodium 136, Potassium 3.8, Chloride 110 H, Carbon Dioxide 7.0 L*, Anion Gap 19 H, BUN 12, Creatinine 1.41 H, Estim Creat Clear Calc 67.24, Est GFR (MDRD) Af Amer 76, Est GFR (MDRD) Non-Af 63, BUN/Creatinine Ratio 8.5 L, Glucose 325 H, Calcium 8.4 L, Total Bilirubin 0.50, AST 30, ALT 95 H, Alkaline Phosphatase 143 H, Troponin I High Sens 5, Total Protein 8.2, Albumin 3.8, Globulin 4.4 H, Albumin/Globulin Ratio 0.9, Lipase 536 H 10/06/22 19:20: Urine Color Yellow, Urine Clarity Clear, Urine pH 5.0, Ur Specific [place] 1.030, Urine Protein 100 H, Urine Glucose (UA) 1000 H, Urine Ketones 150 A*, Urine Occult Blood 25 H, Urine Nitrite Negative, Urine Bilirubin Negative, Urine Urobilinogen Normal, Ur Leukocyte Esterase Negative, Urine RBC 0 SEEN, Urine WBC 0 SEEN, Ur Squamous Epith Cells 0 SEEN, Urine Bacteria 0 SEEN, Hyaline Casts 0-5 SEEN, Urine Mucus 0 SEEN, Urine Opiates Screen NEGATIVE, Urine Methadone Screen NEGATIVE, Ur Barbiturates Screen NEGATIVE, Ur Phencyclidine Scrn NEGATIVE, Ur Amphetamines Screen NEGATIVE, MDMA (Ecstasy) Screen NEGATIVE, U Benzodiazepines Scrn NEGATIVE, Urine Cocaine Screen NEGATIVE, U Cannabinoids Screen NEGATIVE, Ur Drug Screen Comment 10/06/22 20:10: Acetone Level LARGE H 10/06/22 23:16: POC Glucose 272 H 10/06/22 23:30: Sodium 140, Potassium 3.4 L, Chloride 116 H, Carbon Dioxide 7.0 L*, Anion Gap 17 H, BUN 11, Creatinine 0.94, Estim Creat Clear Calc 104.64, Est GFR (MDRD) Af Amer 122, Est GFR (MDRD) Non-Af 101, BUN/Creatinine Ratio 11.7, Glucose 257 H, Calcium 7.7 L, Phosphorus 1.5 L, Magnesium 2.2 10/06/22 23:36: POC Glucose 261 H 10/07/22 00:03: POC Glucose 205 H 10/07/22 01:03: POC Glucose 224 H 10/07/22 02:08: POC Glucose 181 H 10/07/22 03:00: POC Glucose 179 H 10/07/22 03:26: WBC 10.5, RBC 4.87, Hgb 14.4, Hct 43.2, MCV 88.7, MCH 29.6, MCHC 33.3, RDW Std Deviation 44.1 H, RDW Coeff of Angela 13.6, Plt Count 192, MPV 11.3, Immature Gran % (Auto) 0.500, Neut % (Auto) 78.3 H, Lymph % (Auto) 12.8 L, [place] % (Auto) 7.6, Eos % (Auto) 0.5, Baso % (Auto) 0.3, Absolute Neuts (auto) 8.3 H, Absolute Lymphs (auto) 1.35, Nucleated RBC % 0, Sodium 144, Potassium 3.5, Chloride 121 H, Carbon Dioxide 13.0 L, Anion Gap 10, BUN 11, Creatinine 0.90, Estim Creat Clear Calc 109.29, Est GFR (MDRD) Af Amer 128, Est GFR (MDRD) Non-Af 106, BUN/Creatinine Ratio 12.2, Glucose 177 H, Calcium 7.3 L, Total Bilirubin 0.50, AST 26, ALT 70 H, Alkaline Phosphatase 108, Total Protein 6.3 L, Albumin 2.9 L, Globulin 3.4, Albumin/Globulin Ratio 0.9, Triglycerides 237 H, Cholesterol 165, LDL Cholesterol 91, VLDL Cholesterol 47 H, HDL Cholesterol 27 L, Lipase > 5000 H 10/07/22 04:08: POC Glucose 186 H ABG Data ABG results: ABG 10/07/22 02:14 Specimen Type ART Sample Site R RADIAL pH 7.15 L* Bicarbonate Actual 7.0 L Total CO2 8 Base Excess -22 L O2 Saturation 97 ABG pCO2 20.4 L ABG pO2 110 H Senthil Test POS O2 Delivery Device Room Air Crit Call To/Read Back Yes Blood Gas Notified Whom [facility] Blood Gas Notified Time 0214 Clinical Comments Values read to Dr. Tubbs Diagnostic Testing: Radiology Impression Chest X-Ray 10/06/22 19:05 IMPRESSION: No radiographic evidence of acute cardiopulmonary disease. Electronically Signed: Estrellita Cheung MD at 20:07 EDT Reading Location ID and State: [id number] / Tel , Service support , Gallbladder Ultrasound 10/06/22 20:27 IMPRESSION: 1. Gallbladder sludge. 2. Suspected gallbladder polyp. 3. Hypoechoic lesion adjacent to the gallbladder, probable fatty sparing. 4. Mild hepatic steatosis. Electronically Signed: Estrellita Cheung MD at 22:03 EDT Reading Location ID and State: [id number] / Tel , Service support , Assessment & Plan Assessment/Plan (1) DKA (diabetic ketoacidoses): QUALIFIERS: Diabetes mellitus type: type 2 Diabetes mellitus complication detail: without coma Qualified Code(s): E11.10 - Type 2 diabetes mellitus with ketoacidosis without coma (2) Acute alcoholic pancreatitis: QUALIFIERS: Acute pancreatitis complication: no infection or necrosis Qualified Code(s): K85.20 - Alcohol induced acute pancreatitis without necrosis or infection PLAN: Plan The patient is a 27 y/o [place]bourgish-speaking M is being admitted for nausea, vomiting, epigastric pain, burning/reflux esophagitis in characteristics along with diarrhea. Patient recently diagnosed with DM type II and also has alcohol-induced acute pancreatitis #1. DKA w/ Diabetes mellitus type II: Patient admitted in ICU.Initial bicarb was 7.0 and 1 amp bicarb was given. He has last anion gap 10 therefore use 1 more normal range as evidenced by reevaluation of DKA. Magnesium normal. Phosphorus low. On IV potassium phosphate. On DKA protocol as per IV fluid and insulin drip. Hb A1c 12.3. #2. Acute alcoholic pancreatitis: ALT 70. AST normal. Lipase more than 5000. Triglyceride 237. Upper quadrant sonogram shows GB sludge possible polyp on CIWA protocol, MVI, thiamine and folic acid. Case management consulted for substance abuse assistance. #3. Acute renal insufficiency secondary to intractable nausea and emesis: Admission BUN/creatinine 12/1.41, baseline creatinine prior 1. with at the labs consistent with CKD stage II #4. Overweight: Weight loss and lifestyle changes encouraged. #5. GERD: We will maintain on PPI. #6. DVT prophylaxis: Lovenox. #7. CODE status: Full Code.
[2022-10-07 07:38] LABS: Hemoglobin A1c 12.3 % (3.8-5.6)
[2022-10-07 07:48] LABS: Anion Gap 7 (5-15); BUN 11 mg/dL (7-18); BUN/Creat Ratio 13.9 RATIO (10-20); Calcium,Total 7.5 mg/dL (8.5-10.1); Chloride 122 mmol/L (98-107); Creatinine, Serum 0.79 mg/dL (0.70-1.30); EST Glomerular Filtration Rate 123 mL/min (>60); Est Glom Filt Rate - Afr Amer 149 mL/min (>60); Glucose 138 mg/dL (74-106); Potassium 3.2 mmol/L (3.5-5.1); Sodium Level 144 mmol/L (136-145)
[2022-10-07 08:34] LABS: Bedside Glucose 124 mg/dL (74-106)
[2022-10-07 08:34] LABS: Bedside Glucose 184 mg/dL (74-106)
[2022-10-07 08:35] LABS: Bedside Glucose 139 mg/dL (74-106)
[2022-10-07 08:35] LABS: Bedside Glucose 159 mg/dL (74-106)
--- NOTE | 2022-10-07 08:35 | DCINST_ITS ---
Discharge Instructions Follow Up Care Test Results: Test results from this visit will be discussed in further detail at your follow- up appointment, if applicable. Discharge Plan Admission Admit Date/Time: 10/06/22 22:20 Attending Provider: Alfonzo Alejandra Primary Care Provider: Care Physician,No Primary Consulting Providers: Danielle De Luna Discharge Orders/Prescriptions Prescriptions: New thiamine HCl (vitamin B1) [Vitamin B-1] 100 mg Tablet 100 mg PO DAILYCM 30 Days Qty: 30 2RF folic acid 1 mg Tablet 1 mg PO DAILY@0800 30 Days Qty: 30 2RF glipizide 5 mg tablet 5 mg PO BID Qty: 60 2RF insulin lispro [Humalog KwikPen Insulin] 100 unit/mL Insulin Pen See Protocol subcut Q4 Qty: 0 0RF Protocol: 4. Sliding Scale Insulin High-Med Dosing Condition: 150-199 mg/dl = 2 units Condition: 200-259 mg/dl = 4 units Condition: 260-324 mg/dl = 6 units Condition: 325-374 mg/dl = 8 units Condition: 375-409 mg/dl = 10 units Condition: 410-449 mg/dl = 11 units Condition: Greater than 449 call physician Protocol Text: - Use for Total Daily Dose of Insulin 56-80 units - Patient who are insulin resistant or septic HIGH MEDIUM DOSING ALGORITHM Humalog U-100 Insulin 100 unit/mL cartridge 8 unit subcut TID Qty: 15 2RF Rx Instructions: Hold if glucose less than 130 mg/dl insulin glargine [Lantus Solostar U-100 Insulin] 100 unit/mL (3 mL) insulin pen 10 unit subcut DAILY Qty: 15 3RF Rx Instructions: Hold if glucose less than 130 mg/dl (DME) pen needle, diabetic [Comfort EZ Pen [place]] 32 gauge x 5/32 needle See Rx Instructions .Route Qty: 1200 0RF Rx Instructions: As directed Held metformin 500 mg tablet 500 mg PO BID 30 Days Qty: 60 0RF Hold Instructions: Hold for 5 days. Other Ambulatory Orders: Glucometer (Routine) Timeframe: 1 Day Location: Determined by Patient Ordered By: Dr. Alfonzo Alejandra Referrals / Follow Up: Care Physician,No Primary [Primary Care Provider] -
[2022-10-07] MEDS: Folic Acid 1 MG Tablet PO (08:54)
[2022-10-07] MEDS: Enoxaparin 40 MG/0.4 ML Syringe SC (08:54)
[2022-10-07] MEDS: Thiamine Hydrochloride 100 MG Tablet PO (08:54)
[2022-10-07] MEDS: Insulin Glargine-YFGN 100 UNIT/ML Pen 8 UNIT SC (08:55)
--- NOTE | 2022-10-07 08:56 | PCM.DC.SUM ---
Providers Date of Admission: 10/06/22 Date of Discharge: 10/07/22 Primary Care Physician: No Primary Care Phys Reason For Visit: DKA, ETOH, PANCREATITIS Diagnosis Discharge Diagnosis (1) DKA (diabetic ketoacidoses): Status: Acute Code(s): E11.10 - Type 2 diabetes mellitus with ketoacidosis without coma Qualifiers: Diabetes mellitus complication detail: without coma Diabetes mellitus type: type 2 Qualified Code(s): E11.10 - Type 2 diabetes mellitus with ketoacidosis without coma (2) Acute alcoholic pancreatitis: Status: Acute Code(s): K85.20 - Alcohol induced acute pancreatitis without necrosis or infection Qualifiers: Acute pancreatitis complication: no infection or necrosis Qualified Code(s): K85.20 - Alcohol induced acute pancreatitis without necrosis or infection Plan The patient is a 27 y/o Faroese-speaking M is being admitted for nausea, vomiting, epigastric pain, burning/reflux esophagitis in characteristics along with diarrhea. Patient recently diagnosed with DM type II and also has alcohol-induced acute pancreatitis #1. DKA w/ Diabetes mellitus type II: Patient admitted in ICU.clinical and lab findings were consistent with DKA. Initial bicarb was 7.0 and 2 amps bicarb were given. Magnesium normal. Phosphorus low. On IV potassium phosphate. On DKA protocol as per IV fluid and insulin drip. Hb A1c 12.3. Anion gap x2 closed. Lantus insulin subcutaneous given to overlap with insulin drip for 4 hours and then discontinue insulin drip. 1800 ADA diet. Patient does not have abdominal pain chest pain dizziness lightheadedness. He still has some mild thirst.As A1c is very high and oral hypoglycemic agents would not be sufficient therefore Accu-Chek is initial coverage Humalog sliding scale. Patient is discharged on scheduled Lantus insulin and Humalog insulin as mentioned in discharge instruction. Diabetic education and teaching. Patient can follow with PCP in 1 week. Advised to follow-up with [place] [facility] with Meg De Leon NP. #2. Acute alcoholic pancreatitis: ALT 70. AST normal. Lipase more than 5000. Triglyceride 237. Upper quadrant sonogram shows GB sludge possible polyp on CIWA protocol, MVI, thiamine and folic acid. Case management consulted for substance abuse assistance. Low-fat diet advised for hypertriglyceridemia. #3. Acute renal insufficiency secondary to intractable nausea and emesis: Admission BUN/creatinine 12/1.41, baseline creatinine prior 1. with at the labs consistent with CKD stage II Repeat creatinine in the morning 0.79. Acute renal insufficiency resolved. Patient does not meet criteria for NED. #4. Overweight: Weight loss and lifestyle changes encouraged. #5. GERD: We will maintain on PPI. #6. DVT prophylaxis: Lovenox. #7. CODE status: Full Code. Discharge home. Discharge medication reconciliation done. Discharge follow-up instructions completed. Discharge process discussed with the patient and all questions were answered to patient's satisfaction. Total time spent, exact 35 minutes on discharge meds reconciliation, examination, coordination of care with nurses and ancillary staff, review of imaging and blood test and discussion with the patient on follow-up instructions. Medications at Discharge Home Medications metformin 500 mg tablet 500 mg PO BID 30 days #60 tabs 08/19/22 folic acid 1 mg tablet 1 mg PO DAILY@0800 30 days #30 tabs 10/07/22 glipizide 5 mg tablet 5 mg PO BID #60 tabs 10/07/22 insulin glargine 100 unit/mL (3 mL) subcutaneous pen (Lantus Solostar U-100 Insulin) 10 unit (0.1 mL) subcut DAILY #15 mL 10/07/22 insulin lispro 100 unit/mL subcutaneous cartridge (Humalog U-100 Insulin) 8 unit (0.08 mL) subcut TID #15 mL 10/07/22 insulin lispro 100 unit/mL subcutaneous pen (Humalog KwikPen (U-100) Insulin) See Protocol subcut Q4 #0 mL 10/07/22 pen needle, diabetic 32 gauge x 5/32 (Comfort EZ Pen [place]) #1,200 ea 10/07/22 thiamine HCl (vitamin B1) 100 mg tablet (Vitamin B-1) 100 mg PO DAILYCM 30 days #30 tabs 10/07/22 Physical Exam Narrative Seen and examined. Patient is states he has diabetes mellitus type 2 diagnosed 2 years ago. Not taking his metformin. Patient does not have insurance and cannot afford his medications. Physical exam General: Alert, Oriented x3, Cooperative. Overweight BMI 29.3 kg/m?. HEENT: Atraumatic, PERRLA, EOMI, Normocephalic Oral: Oral mucosa moist. No Gingival or Mucosal Lesions/ Ulcerations Neck: Supple, No JVD, Negative Carotid Bruits Lungs: Air entry diminished in bilateral lung bases. No crepitation/rhonchi Cardiovascular: Regular rate, Regular Rhythm, Normal S1, Normal S2, No murmurs Abdomen: Bowel Sounds Present, Soft, Non Tender, Non-Distended : No renal angle tenderness. No suprapubic tenderness. Extremities: No edema, Capillary Refill Less than 3 Seconds Skin: No rashes, No breakdown Musculoskeletal: No Tenderness to Palpation of Joints or Extremities. ROM intact. Neurological: Cranial nerves II-XII grossly intact, DTR 2+/4 and Symmetrical, Neuro grossly intact Psych/Mental Status: Normal Affect, Appropriate. Weight / BMI Weight Weight: 181 lb 10.574 oz Body Mass Index (BMI) 29.2 ABG / Lab / Microbiology Data 10/07/22 03:26 10/07/22 07:25 Laboratory: Laboratory Results - last 24 hr 10/06/22 18:05: POC Glucose 326 H 10/06/22 18:47: WBC 9.5, RBC 5.65, Hgb 16.4, Hct 49.5, MCV 87.6, MCH 29.0, MCHC 33.1, RDW Std Deviation 43.0, RDW Coeff of Angela 13.4, Plt Count 233, MPV 11.2, Immature Gran % (Auto) 0.400, Neut % (Auto) 80.3 H, Lymph % (Auto) 12.4 L, [place] % (Auto) 6.1, Eos % (Auto) 0.4, Baso % (Auto) 0.4, Absolute Neuts (auto) 7.6, Absolute Lymphs (auto) 1.18, Nucleated RBC % 0, Sodium 136, Potassium 3.8, Chloride 110 H, Carbon Dioxide 7.0 L*, Anion Gap 19 H, BUN 12, Creatinine 1.41 H, Estim Creat Clear Calc 67.24, Est GFR (MDRD) Af Amer 76, Est GFR (MDRD) Non-Af 63, BUN/Creatinine Ratio 8.5 L, Glucose 325 H, Calcium 8.4 L, Total Bilirubin 0.50, AST 30, ALT 95 H, Alkaline Phosphatase 143 H, Troponin I High Sens 5, Total Protein 8.2, Albumin 3.8, Globulin 4.4 H, Albumin/Globulin Ratio 0.9, Lipase 536 H 10/06/22 19:20: Urine Color Yellow, Urine Clarity Clear, Urine pH 5.0, Ur Specific [place] 1.030, Urine Protein 100 H, Urine Glucose (UA) 1000 H, Urine Ketones 150 A*, Urine Occult Blood 25 H, Urine Nitrite Negative, Urine Bilirubin Negative, Urine Urobilinogen Normal, Ur Leukocyte Esterase Negative, Urine RBC 0 SEEN, Urine WBC 0 SEEN, Ur Squamous Epith Cells 0 SEEN, Urine Bacteria 0 SEEN, Hyaline Casts 0-5 SEEN, Urine Mucus 0 SEEN, Urine Opiates Screen NEGATIVE, Urine Methadone Screen NEGATIVE, Ur Barbiturates Screen NEGATIVE, Ur Phencyclidine Scrn NEGATIVE, Ur Amphetamines Screen NEGATIVE, MDMA (Ecstasy) Screen NEGATIVE, U Benzodiazepines Scrn NEGATIVE, Urine Cocaine Screen NEGATIVE, U Cannabinoids Screen NEGATIVE, Ur Drug Screen Comment 10/06/22 20:10: Acetone Level LARGE H 10/06/22 23:16: POC Glucose 272 H 10/06/22 23:30: Sodium 140, Potassium 3.4 L, Chloride 116 H, Carbon Dioxide 7.0 L*, Anion Gap 17 H, BUN 11, Creatinine 0.94, Estim Creat Clear Calc 104.64, Est GFR (MDRD) Af Amer 122, Est GFR (MDRD) Non-Af 101, BUN/Creatinine Ratio 11.7, Glucose 257 H, Calcium 7.7 L, Phosphorus 1.5 L, Magnesium 2.2 10/06/22 23:36: POC Glucose 261 H 10/07/22 00:03: POC Glucose 205 H 10/07/22 01:03: POC Glucose 224 H 10/07/22 02:08: POC Glucose 181 H 10/07/22 03:00: POC Glucose 179 H 10/07/22 03:26: WBC 10.5, RBC 4.87, Hgb 14.4, Hct 43.2, MCV 88.7, MCH 29.6, MCHC 33.3, RDW Std Deviation 44.1 H, RDW Coeff of Angela 13.6, Plt Count 192, MPV 11.3, Immature Gran % (Auto) 0.500, Neut % (Auto) 78.3 H, Lymph % (Auto) 12.8 L, [place] % (Auto) 7.6, Eos % (Auto) 0.5, Baso % (Auto) 0.3, Absolute Neuts (auto) 8.3 H, Absolute Lymphs (auto) 1.35, Nucleated RBC % 0, Sodium 144, Potassium 3.5, Chloride 121 H, Carbon Dioxide 13.0 L, Anion Gap 10, BUN 11, Creatinine 0.90, Estim Creat Clear Calc 109.29, Est GFR (MDRD) Af Amer 128, Est GFR (MDRD) Non-Af 106, BUN/Creatinine Ratio 12.2, Glucose 177 H, Hemoglobin A1c 12.3 H, Calcium 7.3 L, Total Bilirubin 0.50, AST 26, ALT 70 H, Alkaline Phosphatase 108, Total Protein 6.3 L, Albumin 2.9 L, Globulin 3.4, Albumin/Globulin Ratio 0.9, Triglycerides 237 H, Cholesterol 165, LDL Cholesterol 91, VLDL Cholesterol 47 H, HDL Cholesterol 27 L, Lipase > 5000 H 10/07/22 04:08: POC Glucose 186 H 10/07/22 05:09: POC Glucose 184 H 10/07/22 06:09: POC Glucose 159 H 10/07/22 06:58: POC Glucose 139 H 10/07/22 07:25: Sodium 144, Potassium 3.2 L, Chloride 122 H, Carbon Dioxide 15.0 L, Anion Gap 7, BUN 11, Creatinine 0.79, Estim Creat Clear Calc 124.50, Est GFR (MDRD) Af Amer 149, Est GFR (MDRD) Non-Af 123, BUN/Creatinine Ratio 13.9, Glucose 138 H, Calcium 7.5 L 10/07/22 08:03: POC Glucose 124 H ABG: ABG 10/07/22 02:14 Specimen Type ART Sample Site R RADIAL pH 7.15 L* Bicarbonate Actual 7.0 L Total CO2 8 Base Excess -22 L O2 Saturation 97 ABG pCO2 20.4 L ABG pO2 110 H Senthil Test POS O2 Delivery Device Room Air Crit Call To/Read Back Yes Blood Gas Notified Whom [facility] Blood Gas Notified Time 0214 Clinical Comments Values read to Radiography Diagnostic Testing: Radiology Impression Chest X-Ray 10/06/22 19:05 IMPRESSION: No radiographic evidence of acute cardiopulmonary disease. Electronically Signed: Estrellita Cheung MD at 20:07 EDT Reading Location ID and State: [id number] / Tel , Service support , Gallbladder Ultrasound 10/06/22 20:27 IMPRESSION: 1. Gallbladder sludge. 2. Suspected gallbladder polyp. 3. Hypoechoic lesion adjacent to the gallbladder, probable fatty sparing. 4. Mild hepatic steatosis. Electronically Signed: Estrellita Cheung MD at 22:03 EDT Reading Location ID and State: [id number] / Tel , Service support , Meaningful Use Info Meaningful Use Diagnoses (Choose all that apply): None applicable Discharge Plan Admission Admit Date/Time: 10/06/22 22:20 Attending Provider: Alfonzo Alejandra Primary Care Provider: Care Physician,No Primary Consulting Providers: Danielle De Luna Discharge Orders/Prescriptions Prescriptions: New thiamine HCl (vitamin B1) [Vitamin B-1] 100 mg Tablet 100 mg PO DAILYCM 30 Days Qty: 30 2RF folic acid 1 mg Tablet 1 mg PO DAILY@0800 30 Days Qty: 30 2RF glipizide 5 mg tablet 5 mg PO BID Qty: 60 2RF insulin lispro [Humalog KwikPen Insulin] 100 unit/mL Insulin Pen See Protocol subcut Q4 Qty: 0 0RF Protocol: 4. Sliding Scale Insulin High-Med Dosing Condition: 150-199 mg/dl = 2 units Condition: 200-259 mg/dl = 4 units Condition: 260-324 mg/dl = 6 units Condition: 325-374 mg/dl = 8 units Condition: 375-409 mg/dl = 10 units Condition: 410-449 mg/dl = 11 units Condition: Greater than 449 call physician Protocol Text: - Use for Total Daily Dose of Insulin 56-80 units - Patient who are insulin resistant or septic HIGH MEDIUM DOSING ALGORITHM Humalog U-100 Insulin 100 unit/mL cartridge 8 unit subcut TID Qty: 15 2RF Rx Instructions: Hold if glucose less than 130 mg/dl insulin glargine [Lantus Solostar U-100 Insulin] 100 unit/mL (3 mL) insulin pen 10 unit subcut DAILY Qty: 15 3RF Rx Instructions: Hold if glucose less than 130 mg/dl (DME) pen needle, diabetic [Comfort EZ Pen [place]] 32 gauge x 5/32 needle See Rx Instructions .Route Qty: 1200 0RF Rx Instructions: As directed Held metformin 500 mg tablet 500 mg PO BID 30 Days Qty: 60 0RF Hold Instructions: Hold for 5 days. Other Ambulatory Orders: Glucometer (Routine) Timeframe: 1 Day Location: Determined by Patient Ordered By: Dr. Alfonzo Alejandra Glucometer (Routine) Timeframe: 1 Day Location: Determined by Patient Ordered By: Dr. Alfonzo Alejandra Referrals / Follow Up: Care Physician,No Primary [Primary Care Provider] - Meg De Leon SUPPORT SERVICE TECH, SUPPORT SERVICE TECH-C [Non-Staff -Ordering Privileges] - Within 1 Week Disposition Disposition (needs filled in before D/C Order can be placed): Home, Self Care Charges/Coding Visit Charges Inpatient E&M: 08865 Disch Hosp >30min
[2022-10-07] MEDS: 0.9% Saline Lock 10 ML Syringe IV (10:23)
[2022-10-07 10:29] LABS: Bedside Glucose 106 mg/dL (74-106)
--- NOTE | 2022-10-07 12:00 | CASEMGMT ---
DEMETRICE SONG to patient's room to discuss discharge needs with patient. Patient lying in bed, family at beside. Patient and family in room only speak Portuguese. Brother Dario on speaker and able to translate. DEMETRICE SONG discussed follow-up care and provided information to [facility]. Patient had no insurance and does not work, [facility] Rx assistance applied by . DEMETRICE SONG updated patient regarding medication and new glucometer to family. Per Dario, his in nurse and will be able to assist with teaching for patient. Per Dario, patient denied further needs. Brother Dario states he will assist patient with follow-up care and appointments. Patient and family had no further needs or concerns at this time.
[2022-10-07 13:45] LABS: Bedside Glucose 256 mg/dL (74-106)
[2022-10-07] MEDS: Insulin Lispro 100 UNIT/ML INSULN.PEN SC (13:49)
--- NOTE | 2022-10-07 15:09 | NURSING ---
Patient discharge instructions reviewed with patient and family. Family members assisted with translation well. This RN reviewed with patient how to check his blood sugar, patient was able to demonstrate appropriately. This RN reviewed with patient how to give insulin subcutaneous. Patient demonstrated back appropriately. All other discharge medications reviewed. This RN stressed with patient the importance of checking his blood sugars, to notify MD if too high and what to do if blood sugar too low.
== END 2022-10-07 15:00 | disposition home or self-care (01) | DRG 637 ==
LOC: ED 19:27 → ICU 22:37
PROVIDERS: Admitting Provider Family Medicine; Emergency Provider Student in an Organized Health Care Education/Training Program; Visit Provider Internal Medicine
DX: E11.10 Type 2 diabetes mellitus with ketoacidosis without coma (principal); K85.20 Alcohol induced acute pancreatitis without necrosis or infection; K76.0 Fatty (change of) liver, not elsewhere classified; Z79.4 Long term (current) use of insulin; E11.22 Type 2 diabetes mellitus with diabetic chronic kidney disease; K21.9 Gastro-esophageal reflux disease without esophagitis; N18.2 Chronic kidney disease, stage 2 (mild); F10.10 Alcohol abuse, uncomplicated; F17.210 Nicotine dependence, cigarettes, uncomplicated; K82.4 Cholesterolosis of gallbladder; E66.3 Overweight; Z91.199 Patient's noncompliance with other medical treatment and regimen due to unspecified reason; Z79.84 Long term (current) use of oral hypoglycemic drugs; Z79.899 Other long term (current) drug therapy; Z68.29 Body mass index [BMI] 29.0-29.9, adult
CPT/HCPCS: 36600; 71045; 76705; 80048; 80053; 80061; 80307; 81001; 82009; 82803; 82962; 83036; 83690; 83735; 84100; 84484; 85025; 93005; 99284; J7030; J7050; A4216; J2405; J7799

== ENCOUNTER 2023-04-16 19:42 | Observation (INO) | payer OTHER, SELFPAY ==
[2023-04-16 19:49] VITALS: BP 150/89; PULSE 93; RESP 16; TEMP 36.6; O2SAT 97; BMI 32.0
[2023-04-16] MEDS: 0.9% Normal Saline (1000mL) 1,000 ML 999 ML IV (20:23)
[2023-04-16 20:28] LABS: Absolute Lymphocyte Count 1.19 X10^3/uL (0.83-4.51); Absolute Neutrophil Count 5.5 X10^3/uL (2.0-7.7); Basophil# 0.05 X10^3/uL; Basophil% 0.7 % (0-1); Eosinophil# 0.09 X10^3/uL; Eosinophils% 1.2 % (0-5); Hematocrit 46.9 % (40-54); Hemoglobin 16.4 g/dL (13.0-16.5); Lymphocyte # 1.19 X10^3/ul (0.83-4.51); Lymphocyte % 16.3 % (19-41); Mean Corpuscular Hgb 28.8 pg (27.0-32.0); Mean Corpuscular Volume 82.3 fL (80-94); Monocyte# 0.46 X10^3/uL; Monocyte% 6.3 % (0-10); NRBC Flagged by Analyzer 0 % (0-5); Neutrophil # 5.47 X10^3/uL (2.7-7.7); Neutrophil % 75.2 % (47-70); Platelet Count 209 K/mm3 (150-450); RBC Distribution Width CV 13.2 % (11.6-14.6); RBC Distribution Width SD 38.9 fl (35.1-43.9); White Blood Count 7.3 K/mm3 (4.4-11.0)
[2023-04-16 20:33] LABS: Bedside Glucose > 500 mg/dL (74-106)
[2023-04-16 20:38] LABS: Bacteria 0 SEEN /hpf (None Seen); Mucous, Urine 0 SEEN /hpf (<or=2+); Red Blood Cells-Urine 0 SEEN /hpf (0-5); Squamous Epithelial Cells - UA 0 SEEN /hpf (0-5); White Blood Cells 0 SEEN /hpf (0-5)
[2023-04-16 20:40] LABS: Color, Urine Yellow (Yellow); Glucose, Dipstick 1000 mg/dl (Normal); Ketone-Dipstick 50 mg/dl (Negative); Leukocyte Esterase-Dipstick Negative /ul (Negative); Nitrite-Dipstick Negative (Negative); Occult Blood-Urine Negative /ul (Negative); Protein-Dipstick Negative (Negative); Specific Gravity, Urine 1.015 (1.002-1.030); Urine Bilirubin Dipstick Negative (Negative); Urine Clarity Clear (Clear); Urine Urobilinogen Normal (Normal)
--- NOTE | 2023-04-16 20:47 | EX.ED.DYSGE1 ---
HPI History of Present Illness Chief Complaint: Hyperglycemia Detail of Chief Complaint: Symptoms of hyperglycemia Informant: patient Limited: language barrier ([employer] Director service was used. Total time with assistant men's soccer coach 18 minutes) Onset/Context/Timing Onset: Month(s) Context: Sudden Onset Timing: Continuous and Waxes and wanes Quality: Polydipsia, polyphasia, polyuria and nocturia Location: Endocrine Current Severity: Moderate Maximum Severity: Moderate Worsened by: Noncompliance with oral agents and insulin Relieved by: Not applicable Associated Symptoms Associated Symptoms: Occasional blurred vision Narrative Narrative: Patient is a 27-year-old bbv-Tbrage[place]-jcksakar gentleman who presents from urgent care because of high blood sugar reading. Patient admits noncompliance with his medication for 2 to 3 months. He should be on glipizide, metformin and insulin. He discontinued the meds. He denies fever, chills night sweats. Does admit to slight weight loss. He does admit to occasional bilateral blurred vision. He also endorses thirst and dry mouth. He does endorse polyuria, polydipsia and nocturia. He states he wakes up 4-5 times to urinate per night. He believes this is due to the fact that he is drinking more water. He states he had chest pain a week ago. The pain was sharp. There was no radiation. There is no associated symptoms. Occurred at rest. Nothing precipitated the pain. Nothing made the pain better or worse. He denies history of hiatal hernia or reflux. He denies black or maroon-colored stool. He has no allergies. He occasionally will smoke. He occasionally have an alcoholic beverage. He denies history of surgery. Prior similar symptoms: Yes Recent Illness/Hospitalization: No [facility] Medical History Acute alcoholic pancreatitis Alcohol abuse Diabetes mellitus, type 2 DKA (diabetic ketoacidoses) GERD (gastroesophageal reflux disease) Overweight Home Medications metformin 500 mg tablet 500 mg PO BID 30 days #60 tabs 08/19/22 [Rx Last Taken Unknown] folic acid 1 mg tablet 1 mg PO DAILY@0800 30 days #30 tabs 10/07/22 [Rx Last Taken Unknown] glipizide 5 mg tablet 5 mg PO BID #60 tabs 10/07/22 [Rx Last Taken Unknown] insulin glargine 100 unit/mL (3 mL) subcutaneous pen (Lantus Solostar U-100 Insulin) 10 unit (0.1 mL) subcut DAILY #15 mL 10/07/22 [Rx Last Taken Unknown] insulin lispro 100 unit/mL subcutaneous cartridge (Humalog U-100 Insulin) 8 unit (0.08 mL) subcut TID #15 mL 10/07/22 [Rx Last Taken Unknown] insulin lispro 100 unit/mL subcutaneous pen (Humalog KwikPen (U-100) Insulin) See Protocol subcut Q4 #0 mL 10/07/22 [Rx Last Taken Unknown] pen needle, diabetic 32 gauge x 5/32 (Comfort EZ Pen [place]) #1,200 ea 10/07/22 [Rx Last Taken Unknown] thiamine HCl (vitamin B1) 100 mg tablet (Vitamin B-1) 100 mg PO DAILYCM 30 days #30 tabs 10/07/22 [Rx Last Taken Unknown] Allergy/AdvReac Type Severity Reaction Status Date / Time No Known Allergies Allergy Verified 04/16/23 19:51 Family History Mother Diabetes Father No problems noted. Surgical History No history of previous surgery Social History household members: spouse and family Smoking Status: Never smoker alcohol intake: current alcohol intake frequency: 3 or more drinks per day details: Patient with binge drinking ~ 15 beers/daily F-Sun. substance use type: does not use ROS ROS ED Constitutional Constitutional ED: Reports weight loss; Denies chills, fever(s), subjective or sweats Eyes Eyes: Reports blurry vision bilateral; Denies change in vision or diplopia ENT ENT ED: Denies ear pain, rhinorrhea or sore throat Cardiovascular Cardiovascular: Reports chest pain; Denies orthopnea, palpitations, paroxysmal nocturnal dyspnea or racing heartbeat Respiratory/Chest Respiratory/Chest: Denies cough, dyspnea, dyspnea on exertion, orthopnea or paroxysmal nocturnal dyspnea Gastrointestinal Gastrointestinal: Denies abdominal pain, diarrhea, melena, nausea or vomiting Genitourinary Genitourinary ED: Reports urinary frequency; Denies dysuria or hematuria Musculoskeletal Musculoskeletal: Denies arthralgias, back pain or myalgias Integumentary Denies rash Neurologic Neurologic: Denies headache(s) or paresthesias Psychiatric Psychiatric: Denies anxiety Endocrine Endocrinology: Reports polydipsia, polyphagia and polyuria; Denies cold intolerance or heat intolerance Hematologic/Lymphatic Hematologic/Lymphatic: Reports systems reviewed and no addt'l complaints, except as documented EXAM Physical Exam Const Vital Signs: 04/16/23 19:49 04/16/23 20:17 Temperature 97.8 F Temperature Source Temporal Pulse Rate 93 Respiratory Rate 16 Respiratory Effort Normal Non-Labored Respiratory Pattern Normal Blood Pressure 150/89 H Blood Pressure Mean 109 Pulse Ox 97 Oxygen Delivery Method Room Air Positive well nourished and well developed General Appearance ED: well developed and NAD; Negative for cyanotic, diaphoretic or pallor HEENT Reports dry mucous membranes HEENT Narrative: Posterior pharynx is normal. Head is atraumatic and normocephalic. Ears are normal. Nares are patent. There is no discharge from the nose. Mouth ED: Yes dry mucous membranes Mouth: dry mucous membranes Eyes PERRL and EOMs intact bilaterally General Eye ED: Negative for pale conjunctiva or scleral icterus Neck no lymphadenopathy, supple and no JVD Chest Wall inspection of chest normal and palpation of chest normal Resp normal respiratory effort and clear to auscultation bilaterally Cardio regular rate, regular rhythm, S1 normal heart sound, S2 normal heart sound and no murmurs GI normal to inspection, nondistended, normoactive bowel sounds, non-tender, non-distended and no masses; Negative for hepatosplenomegaly Auscultation: normoactive bowel sounds Palpation: soft Back/Spine no CVA tenderness Cervical Spine: Negative for cervical spine tenderness Thoracic Spine / Upper Back: Negative for thoracic spinal tenderness Extremity normal to inspection General Extremety ED: Negative for edema or tenderness General Extremity: Negative for edema Neuro oriented x3, CN's II-XII intact bilaterally and no sensory deficits noted Sensorium / Orientation: alert Skin no rashes or lesions noted, no wounds and skin turgor normal General Skin Exam: elasticity normal; Negative for jaundice or pallor MDM MDM MDM Narrative Medical decision making narrative: Patient has signs symptoms of hyperglycemia. Since he is not tachycardic, tachypneic and there is no ketotic's smell to his breath doubt DKA. BGT was greater than 500. In light of this the ED DKA order set was initiated. Patient will receive 1 L of normal saline. If patient is not in DKA will start treatment with insulin and oral agents. EKG was obtained to determine if there is any ischemic changes due to his chest pain from 1 week ago. Lab Data Attestation: I reviewed the patient's lab results. Lab results narrative: CBC is unremarkable. Basic metabolic panel reveals a 7132 which represents pseudohyponatremia. CO2 2 is 20 with an anion gap of 13. BUN and creatinine are elevated at 21 and 1.49 which are new compared to most recent results. Urine is positive for glucose and ketones. Patient has hyperglycemia with ketones. Suspect heat due to starvation for him not eating up and him losing weight. He does have evidence of acute kidney injury. Will treat with subcu insulin. Also order fluid infusion of 250 cc after first liter has infused. Labs: Laboratory Results - last 24 hr 04/16/23 04/16/23 04/16/23 20:15 20:20 20:29 WBC 7.3 RBC 5.70 Hgb 16.4 Hct 46.9 MCV 82.3 MCH 28.8 MCHC 35.0 RDW Std Deviation 38.9 RDW Coeff of Angela 13.2 Plt Count 209 MPV 12.0 Immature Gran % (Auto) 0.300 Neut % (Auto) 75.2 H Lymph % (Auto) 16.3 L [place] % (Auto) 6.3 Eos % (Auto) 1.2 Baso % (Auto) 0.7 Absolute Neuts (auto) 5.5 Absolute Lymphs (auto) 1.19 Nucleated RBC % 0 Sodium 132 L Potassium 4.4 Chloride 99 Carbon Dioxide 20.0 L Anion Gap 13 BUN 21 H Creatinine 1.49 H Estim Creat Clear Calc 76.87 Est GFR (MDRD) Af Amer 71 Est GFR (MDRD) Non-Af 59 L BUN/Creatinine Ratio 14.1 Glucose 698 H* Calcium 9.3 Urine Color Yellow Urine Clarity Clear Urine pH 6.0 Ur Specific [place] 1.015 Urine Protein Negative Urine Glucose (UA) 1000 H Urine Ketones 50 H Urine Occult Blood Negative Urine Nitrite Negative Urine Bilirubin Negative Urine Urobilinogen Normal Ur Leukocyte Esterase Negative Urine RBC 0 SEEN Urine WBC 0 SEEN Ur Squamous Epith Cells 0 SEEN Urine Bacteria 0 SEEN Urine Mucus 0 SEEN POC Glucose > 500 H* EKG Initial EKG: Attestation: I personally reviewed and interpreted this EKG as follows: Interpretation: Sinus Rhythm (Rate is 71. NV interval is 150 ms. QRS duration 102 ms. QT duration 288 ms. [place] is normal. There is evidence of early repolarization. However in the light of him being a noncompliant diabetic with chest pain we will obtain troponin.) Management Discussion w/another healthcare provider: Hospitalist Treatment and Re-Evaluation :: Use of assistant men's soccer coach service for 8 minutes to explain to patient his test results, reason for admission and answering all of his questions. He also was informed that the hospitalist Dr. Toledo will see him to place orders when he is moved to the medical floor. Discharge Plan Dx/Rx/DC Orders Clinical Impression: Acute kidney injury, Hyperosmolar hyperglycemic state (HHS), Ketosis, Elevated blood-pressure reading without diagnosis of hypertension, DM acidosis Disposition Disposition: Acute Care Hospital [facility] [place]
[2023-04-16 20:50] LABS: Anion Gap 13 (5-15); BUN 21 mg/dL (7-18); BUN/Creat Ratio 14.1 RATIO (10-20); Calcium,Total 9.3 mg/dL (8.5-10.1); Chloride 99 mmol/L (98-107); Creatinine, Serum 1.49 mg/dL (0.70-1.30); EST Glomerular Filtration Rate 59 mL/min (>60); Est Glom Filt Rate - Afr Amer 71 mL/min (>60); Estimated Creatinine Clearance 76.87 ml/min; Glucose 698 mg/dL (74-106); Potassium 4.4 mmol/L (3.5-5.1); Sodium Level 132 mmol/L (136-145)
[2023-04-16] MEDS: Insulin Lispro 100 UNIT/ML INSULN.PEN 10 UNIT SC (21:27)
[2023-04-16] MEDS: 0.9% Normal Saline (1000mL) 1,000 ML 250 ML IV (21:27)
--- NOTE | 2023-04-16 21:29 | HP.PCM_ITS ---
HPI - General General Date of Admission: 04/16/23 Date of Service: 04/16/23 Chief Complaint: Hyperglycemia HPI Narrative SALEEM FORDE, is a 27 M who presents to the emergency room with chief complaint of hyperglycemia. Patient has a history of diabetes and has been off his medication for the past 2 months. He reports getting up 5 times at night to pee and has polydipsia and polyuria. His glucose today was 698, with ketones in his urine, however, his anion gap is normal. He was initially given IV fluids in the emergency room along with 10 units of subcu insulin. Patient denies any chest pain, shortness of breath, fevers or chills and/or nausea or vomiting. The ER physician did speak through an certified court/medical interpreter, however, I interviewed the patient myself and was able to carry on a conversation in [place] Sor[place] effectively. I did provide the patient's spouse with information for [facility] that they could utilize following discharge to help obtain any diabetes medications due to lack of resources they may have. [facility] Medical History Acute alcoholic pancreatitis Alcohol abuse Diabetes mellitus, type 2 DKA (diabetic ketoacidoses) GERD (gastroesophageal reflux disease) Overweight Home Medications metformin 500 mg tablet 500 mg PO BID 30 days #60 tabs 08/19/22 [Rx Last Taken Unknown] folic acid 1 mg tablet 1 mg PO DAILY@0800 30 days #30 tabs 10/07/22 [Rx Last Taken Unknown] glipizide 5 mg tablet 5 mg PO BID #60 tabs 10/07/22 [Rx Last Taken Unknown] insulin glargine 100 unit/mL (3 mL) subcutaneous pen (Lantus Solostar U-100 Insulin) 10 unit (0.1 mL) subcut DAILY #15 mL 10/07/22 [Rx Last Taken Unknown] insulin lispro 100 unit/mL subcutaneous cartridge (Humalog U-100 Insulin) 8 unit (0.08 mL) subcut TID #15 mL 10/07/22 [Rx Last Taken Unknown] insulin lispro 100 unit/mL subcutaneous pen (Humalog KwikPen (U-100) Insulin) See Protocol subcut Q4 #0 mL 10/07/22 [Rx Last Taken Unknown] pen needle, diabetic 32 gauge x 5/32 (Comfort EZ Pen [place]) #1,200 ea 10/07/22 [Rx Last Taken Unknown] thiamine HCl (vitamin B1) 100 mg tablet (Vitamin B-1) 100 mg PO DAILYCM 30 days #30 tabs 10/07/22 [Rx Last Taken Unknown] Allergy/AdvReac Type Severity Reaction Status Date / Time No Known Allergies Allergy Verified 04/16/23 19:51 Family History Mother Diabetes Father No problems noted. Surgical History No history of previous surgery Social History household members: spouse and family Smoking Status: Never smoker alcohol intake: current alcohol intake frequency: 3 or more drinks per day details: Patient with binge drinking ~ 15 beers/daily F-Sun. substance use type: does not use ROS Constitutional Constitutional: Reports change in weight; Denies chills or fever(s) Eyes Eyes: Denies blurry vision ENT HEENT: Denies abnormal hearing Cardiovascular Cardiovascular: Denies chest pain Respiratory/Chest Respiratory/Chest: Denies cough Gastrointestinal Gastrointestinal: Denies abdominal pain Genitourinary Genitourinary: Reports polyuria; Denies dysuria Musculoskeletal Musculoskeletal: Denies back pain Integumentary Integumentary: Denies dry skin Neurologic Neurologic: Denies abnormal gait Vital Signs Vital Signs Vital Signs: 04/16/23 19:49 04/16/23 20:17 Temperature 97.8 F Temperature Source Temporal Pulse Rate 93 Respiratory Rate 16 Respiratory Effort Normal Non-Labored Respiratory Pattern Normal Blood Pressure 150/89 H Blood Pressure Mean 109 Pulse Ox 97 Oxygen Delivery Method Room Air Weight Weight: 198 lb 8 oz Body Mass Index (BMI) 32.0 Physical Exam Const oriented x3 General Appearance: cooperative HEENT normocephalic and head/scalp atraumatic Eyes PERRL Neck no lymphadenopathy Lymph Lymphatic: no lymphadenopathy noted Resp normal respiratory effort, normal air movement and clear to auscultation bilaterally Cardio regular rate, regular rhythm, S1 normal heart sound and S2 normal heart sound GI normal to inspection, nondistended, normoactive bowel sounds Skin General Skin Exam: no breakdown Neuro no focal motor deficits and no sensory deficits noted Psych thought process normal, cooperative and affect normal Appearance: appropriate Results Lab / Micro Data 04/16/23 20:20 04/16/23 20:20 Labs: Laboratory Results - last 24 hr 04/16/23 20:15: POC Glucose > 500 H* 04/16/23 20:20: WBC 7.3, RBC 5.70, Hgb 16.4, Hct 46.9, MCV 82.3, MCH 28.8, MCHC 35.0, RDW Std Deviation 38.9, RDW Coeff of Angela 13.2, Plt Count 209, MPV 12.0, Immature Gran % (Auto) 0.300, Neut % (Auto) 75.2 H, Lymph % (Auto) 16.3 L, [place] % (Auto) 6.3, Eos % (Auto) 1.2, Baso % (Auto) 0.7, Absolute Neuts (auto) 5.5, Absolute Lymphs (auto) 1.19, Nucleated RBC % 0, Sodium 132 L, Potassium 4.4, Chloride 99, Carbon Dioxide 20.0 L, Anion Gap 13, BUN 21 H, Creatinine 1.49 H, Estim Creat Clear Calc 76.87, Est GFR (MDRD) Af Amer 71, Est GFR (MDRD) Non-Af 59 L, BUN/Creatinine Ratio 14.1, Glucose 698 H*, Calcium 9.3 04/16/23 20:29: Urine Color Yellow, Urine Clarity Clear, Urine pH 6.0, Ur Specific [place] 1.015, Urine Protein Negative, Urine Glucose (UA) 1000 H, Urine Ketones 50 H, Urine Occult Blood Negative, Urine Nitrite Negative, Urine Bilirubin Negative, Urine Urobilinogen Normal, Ur Leukocyte Esterase Negative, Urine RBC 0 SEEN, Urine WBC 0 SEEN, Ur Squamous Epith Cells 0 SEEN, Urine Bacteria 0 SEEN, Urine Mucus 0 SEEN Assessment & Plan Assessment/Plan (1) DM acidosis: (2) Elevated blood-pressure reading without diagnosis of hypertension: (3) Ketosis: (4) Hyperosmolar hyperglycemic state (HHS): (5) Acute kidney injury: PLAN: Plan 1 hyperglycemia secondary to diabetes and patient without medication.?Admit patient to general medical floor will initiate sliding scale insulin, start metformin 1000 mg p.o. twice daily and restart his glipizide. Will continue IV hydration overnight with repeat BMP in the morning. Initiate sliding scale insulin coverage for before meals and at bedtime. Consult case packer and sealer to assist with discharge planning for outpatient follow-up care perhaps [facility] 2. Elevated blood pressure?continue to monitor will address as needed would recommend he is discharged with an CRESENCIO inhibitor 3. Acute kidney injury?will hydrate with normal saline overnight repeat BMP in the morning 4. DVT prophylaxis?patient is ambulatory at no prophylaxis needed at this time Charges/Coding Visit Charges Inpatient E&M: 18880 Init Hosp L2
[2023-04-16 21:57] LABS: Anion Gap 11 (5-15); BUN 21 mg/dL (7-18); BUN/Creat Ratio 17.5 RATIO (10-20); Calcium,Total 8.3 mg/dL (8.5-10.1); Chloride 103 mmol/L (98-107); EST Glomerular Filtration Rate 76 mL/min (>60); Est Glom Filt Rate - Afr Amer 92 mL/min (>60); Estimated Creatinine Clearance 95.45 ml/min; Glucose 610 mg/dL (74-106); Potassium 3.9 mmol/L (3.5-5.1); Sodium Level 133 mmol/L (136-145); Troponin-I HS 8 pg/mL (3.0-78.0)
[2023-04-16 22:26] VITALS: BP 137/87; PULSE 82; RESP 18; O2SAT 96
[2023-04-16 22:40] VITALS: BP 157/87; PULSE 70; RESP 16; TEMP 35.9; O2SAT 98
[2023-04-16 22:45] LABS: Bedside Glucose 498 mg/dL (74-106)
[2023-04-16 22:57] VITALS: BMI 34.0
[2023-04-16] MEDS: glipiZIDE 5 MG Tablet PO (23:15)
[2023-04-16] MEDS: Insulin Lispro 100 UNIT/ML INSULN.PEN SC (23:16)
[2023-04-16] MEDS: Insulin Glargine-YFGN 100 UNIT/ML Pen 10 UNIT SC (23:17)
[2023-04-16 23:43] LABS: Bedside Glucose 395 mg/dL (74-106)
[2023-04-17] MEDS: 0.9% Normal Saline (1000mL) 1,000 ML 250 ML IV ×2 (00:36→04:39)
[2023-04-17 03:40] VITALS: BP 122/77; PULSE 62; RESP 16; TEMP 36.5; O2SAT 100
[2023-04-17] MEDS: Insulin Lispro 100 UNIT/ML INSULN.PEN SC ×2 (06:37→12:04)
[2023-04-17 06:49] LABS: Anion Gap 7 (5-15); BUN 17 mg/dL (7-18); BUN/Creat Ratio 22.5 RATIO (10-20); Chloride 114 mmol/L (98-107); Creatinine, Serum 0.75 mg/dL (0.70-1.30); EST Glomerular Filtration Rate 129 mL/min (>60); Est Glom Filt Rate - Afr Amer 157 mL/min (>60); Estimated Creatinine Clearance 141.71 ml/min; Glucose 204 mg/dL (74-106); Potassium 3.8 mmol/L (3.5-5.1); Sodium Level 142 mmol/L (136-145)
[2023-04-17 07:00] LABS: Bedside Glucose 207 mg/dL (74-106)
--- NOTE | 2023-04-17 08:33 | DCINST_ITS ---
Discharge Instructions Diet Discharge Diet: Low fat / Low cholesterol and 1800 Calorie Control Diet Activity Discharge Activity: Return to Normal Activity Weight Bearing Status: Weight bearing as tolerated Dressing / Incision Call your doctor if you observe: Fever of 101 or Higher, Coldness, Increased Pain, Numbness or Tingling, Change in Color, Inability to urinate, Inability to have a bowel movement, Shortness of breath, Dizziness, Fainting spells, Swelling in the ankles, Chest pain, Prolonged hiccupping, Increased palpitations (irregular heartbeat) and Calf discomfort Follow Up Care When: IN 2 WEEKS Test Results: Test results from this visit will be discussed in further detail at your follow- up appointment, if applicable. Discharge Plan Admission Admit Date/Time: 04/16/23 21:36 Attending Provider: Alfonzo Alejandra Primary Care Provider: Care Physician,No Primary Consulting Providers: Andrea Toledo Discharge Orders/Prescriptions Prescriptions: Continued thiamine HCl (vitamin B1) [Vitamin B-1] 100 mg Tablet 100 mg PO DAILYCM 30 Days Qty: 30 2RF folic acid 1 mg Tablet 1 mg PO DAILY@0800 30 Days Qty: 30 2RF insulin lispro [Humalog KwikPen Insulin] 100 unit/mL Insulin Pen See Protocol subcut Q4 Qty: 0 0RF Protocol: 4. Sliding Scale Insulin High-Med Dosing Condition: 150-199 mg/dl = 2 units Condition: 200-259 mg/dl = 4 units Condition: 260-324 mg/dl = 6 units Condition: 325-374 mg/dl = 8 units Condition: 375-409 mg/dl = 10 units Condition: 410-449 mg/dl = 11 units Condition: Greater than 449 call physician Protocol Text: - Use for Total Daily Dose of Insulin 56-80 units - Patient who are insulin resistant or septic HIGH MEDIUM DOSING ALGORITHM metformin 500 mg tablet 500 mg PO BID 30 Days Qty: 60 2RF Rx Instructions: Start from 04/19/2023. glipizide 5 mg tablet 5 mg PO BID Qty: 60 2RF Rx Instructions: Hold if glucose less than 130 mg/dl Humalog U-100 Insulin 100 unit/mL cartridge 8 unit subcut TID Qty: 15 5RF Rx Instructions: Hold if glucose less than 130 mg/dl (DME) pen needle, diabetic [Comfort EZ Pen [place]] 32 gauge x 5/32 needle See Rx Instructions .Route Qty: 1200 0RF Rx Instructions: As directed Changed insulin glargine [Lantus Solostar U-100 Insulin] 100 unit/mL (3 mL) insulin pen 15 unit subcut DAILY Qty: 15 5RF Rx Instructions: Hold if glucose less than 130 mg/dl Referrals / Follow Up: Mary Dhaliwal [Non-Staff] - 05/01/23 2:45 pm Disposition Disposition (needs filled in before D/C Order can be placed): Home, Self Care
--- NOTE | 2023-04-17 08:39 | DS.PCM_ITS ---
Providers Date of Admission: 04/16/23 Primary Care Physician: No Primary Care Phys Reason For Visit: HYPERGLYCEMIA Diagnosis Discharge Diagnosis (1) DM acidosis: Status: Acute Code(s): E11.10 - Type 2 diabetes mellitus with ketoacidosis without coma (2) Elevated blood-pressure reading without diagnosis of hypertension: Status: Acute Code(s): R03.0 - Elevated blood-pressure reading, without diagnosis of hypertension (3) Ketosis: Status: Acute Code(s): E88.89 - Other specified metabolic disorders (4) Hyperosmolar hyperglycemic state (HHS): Status: Acute Code(s): E11.00 - Type 2 diabetes mellitus with hyperosmolarity without nonketotic hyperglycemic-hyperosmolar coma (NKHHC) (5) Acute kidney injury: Status: Acute Code(s): N17.9 - Acute kidney failure, unspecified Plan 27-year-old gentleman with history of diabetes mellitus type 2 was last admitted in September 2022 for DKA. Patient again came to ER with hyperglycemia, not adherent to insulin and antidiabetic medication for 2 to 3 months. Denies fever chills. Patient has polyuria polydipsia. Patient was admitted in PCU. 1 diabetes mellitus type 2 with hyperglycemia: Patient admitted on PCU. Labs reviewed. Does not have DKA or HHS. Patient to restart his medications metformin 500 mg twice daily, glipizide and insulin. Prescriptions were again given. Does not have acute symptoms. technology program manager was consulted. Follow-up to Mary Boykin on 05/01/2023. 2. Elevated blood pressure: Patient blood pressure was high on admission 150/89. Currently 122/77. Empirically 30-day supply of lisinopril 5 mg daily given. Advised to follow with PCP for ABPM or home BP monitoring to diagnose hypertension. 3. Acute kidney injury?patient admitted with creatinine 1.49. Was resuscitated with IV fluid and creatinine decreased to 0.75. NED resolved. 4. DVT prophylaxis, low risk?patient is ambulatory at no prophylaxis needed at this time Discharge medication reconciliation done. Discharge follow-up instructions completed. Discharge process discussed with the patient and all questions were answered to patient's satisfaction. Follow with PCP in 1 to 2 weeks Total time spent, exact 35 minutes on discharge meds reconciliation, examination, coordination of care with nurses and ancillary staff, review of imaging and blood test and discussion with the patient on follow-up instructions. Medications at Discharge Home Medications folic acid 1 mg tablet 1 mg PO DAILY@0800 supplement 30 days #30 tabs 10/07/22 insulin lispro 100 unit/mL subcutaneous pen (Humalog KwikPen (U-100) Insulin) See Protocol subcut Q4 diabaetes #0 mL 10/07/22 thiamine HCl (vitamin B1) 100 mg tablet (Vitamin B-1) 100 mg PO DAILYCM vitamin 30 days #30 tabs 10/07/22 glipizide 5 mg tablet 5 mg PO BID #60 tabs 04/17/23 insulin glargine 100 unit/mL (3 mL) subcutaneous pen (Lantus Solostar U-100 Insulin) 15 unit (0.15 mL) subcut DAILY #15 mL 04/17/23 insulin lispro 100 unit/mL subcutaneous cartridge (Humalog U-100 Insulin) 8 unit (0.08 mL) subcut TID #15 mL 04/17/23 lisinopril 5 mg tablet 5 mg PO DAILY #30 tabs 04/17/23 metformin 500 mg tablet 500 mg PO BID 30 days #60 tabs 04/17/23 pen needle, diabetic 32 gauge x 5/32 (Comfort EZ Pen [place]) #1,200 ea Physical Exam Narrative Seen and examined. Patient does not have any symptoms. Admitted with hyperglycemia. Anion gap normal therefore no DKA. Serum sodium normal 142. Potassium normal. Denies abdominal pain or change in mental status. Denies dysuria. No vomiting or diarrhea. Physical exam General: Alert, Oriented x3, Cooperative HEENT: Atraumatic, PERRLA, EOMI, Normocephalic Oral: Oral mucosa moist. No Gingival or Mucosal Lesions/ Ulcerations Neck: Supple, No JVD, Negative Carotid Bruits Lungs: Air entry diminished in bilateral lung bases. No crepitation/rhonchi Cardiovascular: Regular rate, Regular Rhythm, Normal S1, Normal S2, No murmurs Abdomen: Bowel Sounds Present, Soft, Non Tender, Non-Distended : No renal angle tenderness. No suprapubic tenderness. Extremities: No edema, Capillary Refill Less than 3 Seconds Skin: No rashes, No breakdown Musculoskeletal: No Tenderness to Palpation of Joints or Extremities Neurological: Cranial nerves II-XII grossly intact, DTR 2+/4. No acute focal neurological deficit. Psych/Mental Status: Normal Affect, Appropriate. Weight / BMI Weight Weight: 191 lb 12.835 oz Body Mass Index (BMI) 34.0 ABG / Lab / Microbiology Data 04/16/23 20:20 04/17/23 06:05 Laboratory: Laboratory Results - last 24 hr 04/16/23 20:15: POC Glucose > 500 H* 04/16/23 20:20: WBC 7.3, RBC 5.70, Hgb 16.4, Hct 46.9, MCV 82.3, MCH 28.8, MCHC 35.0, RDW Std Deviation 38.9, RDW Coeff of [place] 13.2, Plt Count 209, MPV 12.0, Immature Gran % (Auto) 0.300, Neut % (Auto) 75.2 H, Lymph % (Auto) 16.3 L, [place] % (Auto) 6.3, Eos % (Auto) 1.2, Baso % (Auto) 0.7, Absolute Neuts (auto) 5.5, Absolute Lymphs (auto) 1.19, Nucleated RBC % 0, Sodium 132 L, Potassium 4.4, Chloride 99, Carbon Dioxide 20.0 L, Anion Gap 13, BUN 21 H, Creatinine 1.49 H, Estim Creat Clear Calc 76.87, Est GFR (MDRD) Af Amer 71, Est GFR (MDRD) Non-Af 59 L, BUN/Creatinine Ratio 14.1, Glucose 698 H*, Calcium 9.3 04/16/23 20:29: Urine Color Yellow, Urine Clarity Clear, Urine pH 6.0, Ur Specific [place] 1.015, Urine Protein Negative, Urine Glucose (UA) 1000 H, Urine Ketones 50 H, Urine Occult Blood Negative, Urine Nitrite Negative, Urine Bilirubin Negative, Urine Urobilinogen Normal, Ur Leukocyte Esterase Negative, Urine RBC 0 SEEN, Urine WBC 0 SEEN, Ur Squamous Epith Cells 0 SEEN, Urine Bacteria 0 SEEN, Urine Mucus 0 SEEN 04/16/23 21:28: Sodium 133 L, Potassium 3.9, Chloride 103, Carbon Dioxide 19.0 L , Anion Gap 11, BUN 21 H, Creatinine 1.20, Estim Creat Clear Calc 95.45, Est GFR (MDRD) Af Amer 92, Est GFR (MDRD) Non-Af 76, BUN/Creatinine Ratio 17.5, Glucose 610 H*, Calcium 8.3 L, Troponin I High Sens 8 04/16/23 22:23: POC Glucose 498 H* 04/16/23 23:14: POC Glucose 395 H 04/17/23 06:05: Sodium 142, Potassium 3.8, Chloride 114 H, Carbon Dioxide 21.0, Anion Gap 7, BUN 17, Creatinine 0.75, Estim Creat Clear Calc 141.71, Est GFR (MDRD) Af Amer 157, Est GFR (MDRD) Non-Af 129, BUN/Creatinine Ratio 22.5 H, Glucose 204 H, Calcium 8.0 L 04/17/23 06:35: POC Glucose 207 H D/C Instructions Discharge Diet: Low fat / Low cholesterol and 1800 Calorie Control Diet Weight Bearing Status: Weight bearing as tolerated Call your doctor if you observe: Fever of 101 or Higher, Coldness, Increased Pain, Numbness or Tingling, Change in Color, Inability to urinate, Inability to have a bowel movement, Shortness of breath, Dizziness, Fainting spells, Swelling in the ankles, Chest pain, Prolonged hiccupping, Increased palpitations (irregular heartbeat) and Calf discomfort When: IN 2 WEEKS Meaningful Use Info Meaningful Use Diagnoses (Choose all that apply): None applicable Discharge Plan Admission Admit Date/Time: 04/16/23 21:36 Primary Reason for Your Visit: Hyperglycemia. Attending Provider: Alfonzo Alejandra Primary Care Provider: Care Physician,No Primary Consulting Providers: Andrea Toledo Discharge Orders/Prescriptions Prescriptions: New lisinopril 5 mg tablet 5 mg PO DAILY Qty: 30 2RF Continued thiamine HCl (vitamin B1) [Vitamin B-1] 100 mg Tablet 100 mg PO DAILYCM 30 Days Qty: 30 2RF folic acid 1 mg Tablet 1 mg PO DAILY@0800 30 Days Qty: 30 2RF insulin lispro [Humalog KwikPen Insulin] 100 unit/mL Insulin Pen See Protocol subcut Q4 Qty: 0 0RF Protocol: 4. Sliding Scale Insulin High-Med Dosing Condition: 150-199 mg/dl = 2 units Condition: 200-259 mg/dl = 4 units Condition: 260-324 mg/dl = 6 units Condition: 325-374 mg/dl = 8 units Condition: 375-409 mg/dl = 10 units Condition: 410-449 mg/dl = 11 units Condition: Greater than 449 call physician Protocol Text: - Use for Total Daily Dose of Insulin 56-80 units - Patient who are insulin resistant or septic HIGH MEDIUM DOSING ALGORITHM metformin 500 mg tablet 500 mg PO BID 30 Days Qty: 60 2RF Rx Instructions: Start from 04/19/2023. glipizide 5 mg tablet 5 mg PO BID Qty: 60 2RF Rx Instructions: Hold if glucose less than 130 mg/dl Humalog U-100 Insulin 100 unit/mL cartridge 8 unit subcut TID Qty: 15 5RF Rx Instructions: Hold if glucose less than 130 mg/dl (DME) pen needle, diabetic [Comfort EZ Pen [place]] 32 gauge x 5/32 needle See Rx Instructions .Route Qty: 1200 0RF Rx Instructions: As directed Changed insulin glargine [Lantus Solostar U-100 Insulin] 100 unit/mL (3 mL) insulin pen 15 unit subcut DAILY Qty: 15 5RF Rx Instructions: Hold if glucose less than 130 mg/dl Referrals / Follow Up: Mary Dhaliwal [Non-Staff] - 05/01/23 2:45 pm Disposition Disposition (needs filled in before D/C Order can be placed): Home, Self Care Charges/Coding Visit Charges Inpatient E&M: 99882 Disch Hosp >30min
[2023-04-17] MEDS: glipiZIDE 5 MG Tablet PO (09:26)
[2023-04-17] MEDS: Thiamine Hydrochloride 100 MG Tablet PO (09:26)
[2023-04-17] MEDS: Folic Acid 1 MG Tablet PO (09:26)
[2023-04-17] MEDS: Insulin Glargine-YFGN 100 UNIT/ML Pen 10 UNIT SC (09:27)
[2023-04-17 09:40] VITALS: BP 128/75; PULSE 65; RESP 16; TEMP 36.6; O2SAT 99
--- NOTE | 2023-04-17 11:10 | CASEMGMT ---
RN CM Face to Face with patient for initial transition planning/care coordination assessment using avionics integration engineer ipad. RN CM introduced self and role at [facility]. Patient lying in bed, alert and oriented. Patient willing to participate in assessment and is able to answer all questions appropriately. Care providers, pharmacy, and demographics verified. Patient wishes to discharge home, denies need for home health at this time. Patient states he has no further needs or concerns at this time. CM to follow for discharge planning needs that may arise. PCP: No, [facility] Specialists: none Preferred Pharmacy: [facility] Insurance: MMO Prescription Benefit: yes Living Will/HPOA: none LNOK: brother, friend Living Arrangements: Patient lives alone in a mobile home. Patient is independent Transportation: self, friend DME/HHC: Patient has glucometer and a few test strip and states battery is on glucometer. Script received for glucometer and provided in discharge papers. Disposition Plan: Patient to discharge home with follow-up plans in place. Alva WEISS, RN, CM
[2023-04-17 12:26] LABS: Bedside Glucose 268 mg/dL (74-106)
== END 2023-04-17 13:29 | disposition home or self-care (01) ==
LOC: ED 21:40 → PCU 04-17 07:30
PROVIDERS: Admitting Provider Family Medicine; Emergency Provider Emergency Medicine; Visit Provider Internal Medicine
DX: E11.00 Type 2 diabetes mellitus with hyperosmolarity without nonketotic hyperglycemic-hyperosmolar coma (NKHHC) (principal); N17.9 Acute kidney failure, unspecified; E11.10 Type 2 diabetes mellitus with ketoacidosis without coma; Z79.4 Long term (current) use of insulin; F17.200 Nicotine dependence, unspecified, uncomplicated; R03.0 Elevated blood-pressure reading, without diagnosis of hypertension; T38.3X6A Underdosing of insulin and oral hypoglycemic [antidiabetic] drugs, initial encounter; Z91.148 Patient's other noncompliance with medication regimen for other reason; K21.9 Gastro-esophageal reflux disease without esophagitis; Z79.899 Other long term (current) drug therapy; Z79.84 Long term (current) use of oral hypoglycemic drugs
CPT/HCPCS: 36415; 80048; 81001; 82962; 84484; 85025; 90471; 93005; 96360; 96361; 99221; 99285; 99406; J7030; A4216; G0378